=== PATIENT | male | born 1950 | race Caucasian/White ===

== ENCOUNTER 2016-03-04 15:38 | Outpatient (CLI) | payer MEDICARE | END 2016-03-04 15:39 | disposition home or self-care (01) | DX: I82.409 Acute embolism and thrombosis of unspecified deep veins of unspecified lower extremity (principal); Z79.01 Long term (current) use of anticoagulants ==

== ENCOUNTER 2016-09-24 13:47 | Outpatient (CLI) | payer MEDICARE | END 2016-09-24 13:48 | disposition home or self-care (01) | LOC: LAB 13:47 | PROVIDERS: ATTEND Emergency Medicine | DX: I82.409 Acute embolism and thrombosis of unspecified deep veins of unspecified lower extremity (principal) | CPT/HCPCS: 85610 ==

== ENCOUNTER 2016-09-25 13:43 | Outpatient (CLI) | payer MEDICARE ==
[2016-09-25 14:08] LABS: INR 1.2 (0.8-1.2); PT - PROTHROMBIN TIME 13.7 secs (9.9-12.6)
== END 2016-09-25 13:44 | disposition home or self-care (01) ==
LOC: LAB 13:43
PROVIDERS: ATTEND Physician Assistant
DX: Z86.718 Personal history of other venous thrombosis and embolism (principal)
CPT/HCPCS: 36415; 85610

== ENCOUNTER 2016-09-26 14:05 | Outpatient (CLI) | payer MEDICARE ==
[2016-09-26 14:43] LABS: BASOPHILS # (AUTO) 0.1 10^3/uL (0.0-0.1); BASOPHILS % (AUTO) 1.1 %; EOSINOPHILS # (AUTO) 0.1 10^3/uL (0.0-0.7); EOSINOPHILS % (AUTO) 2.6 %; HCT - HEMATOCRIT 33.6 % (42.0-52.0); HGB - HEMOGLOBIN 11.3 g/dL (14.0-18.0); LYMPHOCYTES # (AUTO) 1.2 10^3/uL (1.5-3.5); LYMPHOCYTES % (AUTO) 24.9 %; MEAN CORPUSCULAR HEMOGLOBIN 32.5 pg (27.0-31.0); MEAN CORPUSCULAR HGB CONC 33.7 g/dL (32.0-36.0); MEAN CORPUSCULAR VOLUME 96.6 fL (80.0-94.0); MEAN PLATELET VOLUME 8.8 fL (7.4-11.4); MONOCYTES # (AUTO) 0.6 10^3/uL (0.0-1.0); MONOCYTES % (AUTO) 13.1 %; NEUTROPHILS # (AUTO) 2.8 10^3/uL (1.5-6.6); NEUTROPHILS % (AUTO) 58.3 %; NUCLEATED RED BLOOD CELLS AUTO 0.1 /100WBC; RED BLOOD COUNT 3.47 10^6/uL (4.70-6.10); RED CELL DISTRIBUTION WIDTH 13.7 % (12.0-15.0); UNCORRECTED WHITE BLOOD COUNT 4.8 x10^3/uL; WHITE BLOOD COUNT 4.8 x10^3/uL (4.8-10.8)
[2016-09-26 14:50] LABS: INR 1.8 (0.8-1.2); PT - PROTHROMBIN TIME 19.8 secs (9.9-12.6)
== END 2016-09-26 14:06 | disposition home or self-care (01) ==
LOC: LAB 14:05
PROVIDERS: ATTEND Emergency Medicine
DX: I74.9 Embolism and thrombosis of unspecified artery (principal)
CPT/HCPCS: 36415; 82565; 85025; 85610

== ENCOUNTER 2016-09-27 14:02 | Outpatient (CLI) | payer MEDICARE | END 2016-09-27 14:03 | disposition home or self-care (01) | LOC: LAB 14:02 | PROVIDERS: ATTEND Emergency Medicine | DX: I82.409 Acute embolism and thrombosis of unspecified deep veins of unspecified lower extremity (principal) | CPT/HCPCS: 85610 ==

== ENCOUNTER 2016-09-28 14:58 | Outpatient (CLI) | payer MEDICARE | END 2016-09-28 14:59 | disposition home or self-care (01) | LOC: LAB 14:58 | PROVIDERS: ATTEND Emergency Medicine | DX: I82.409 Acute embolism and thrombosis of unspecified deep veins of unspecified lower extremity (principal) | CPT/HCPCS: 85610 ==

== ENCOUNTER 2016-09-30 13:44 | Outpatient (CLI) | payer MEDICARE | END 2016-09-30 13:45 | disposition home or self-care (01) | LOC: LAB 13:44 | PROVIDERS: ATTEND Emergency Medicine | DX: I82.409 Acute embolism and thrombosis of unspecified deep veins of unspecified lower extremity (principal) | CPT/HCPCS: 85610 ==

== ENCOUNTER 2016-10-18 13:24 | Outpatient (CLI) | payer MEDICARE | END 2016-10-18 13:25 | disposition home or self-care (01) | LOC: LAB 13:24 | PROVIDERS: ATTEND Emergency Medicine | DX: I82.409 Acute embolism and thrombosis of unspecified deep veins of unspecified lower extremity (principal) | CPT/HCPCS: 85610 ==

== ENCOUNTER 2016-11-01 14:45 | Outpatient (CLI) | payer MEDICARE | END 2016-11-01 14:46 | disposition home or self-care (01) | LOC: LAB 14:45 | PROVIDERS: ATTEND Emergency Medicine | DX: I82.409 Acute embolism and thrombosis of unspecified deep veins of unspecified lower extremity (principal) | CPT/HCPCS: 85610 ==

== ENCOUNTER 2016-11-11 08:00 | Outpatient (CLI) | payer MEDICARE ==
[2016-11-11 15:19] LABS: BILIRUBIN,URINE NEGATIVE (NEGATIVE); PH,URINE 6.5 PH (5.0-7.5); UA w/ MICROSCOPIC CHARGE YES
[2016-11-11 15:31] LABS: UR CULTURE IF IND INDICATED; WBC,URINE >25 /HPF (0-3)
== END 2016-11-11 08:01 | disposition home or self-care (01) ==
LOC: LAB.R 08:00
PROVIDERS: ATTEND Physician Assistant
DX: R82.90 Unspecified abnormal findings in urine (principal)
CPT/HCPCS: 81001; 81003; 87077; 87086

== ENCOUNTER 2016-11-21 14:57 | Outpatient (CLI) | payer MEDICARE | END 2016-11-21 14:58 | disposition home or self-care (01) | LOC: LAB 14:57 | PROVIDERS: ATTEND Emergency Medicine | DX: I82.409 Acute embolism and thrombosis of unspecified deep veins of unspecified lower extremity (principal) | CPT/HCPCS: 85610 ==

== ENCOUNTER 2016-11-24 14:58 | Outpatient (CLI) | payer MEDICARE | END 2016-11-24 14:59 | disposition home or self-care (01) | LOC: LAB 14:58 | PROVIDERS: ATTEND Emergency Medicine | DX: I82.409 Acute embolism and thrombosis of unspecified deep veins of unspecified lower extremity (principal) | CPT/HCPCS: 85610 ==

== ENCOUNTER 2016-11-25 12:04 | Outpatient (CLI) | payer MEDICARE | END 2016-11-25 12:05 | disposition home or self-care (01) | LOC: LAB 12:04 | PROVIDERS: ATTEND Emergency Medicine | DX: I82.409 Acute embolism and thrombosis of unspecified deep veins of unspecified lower extremity (principal) | CPT/HCPCS: 85610 ==

== ENCOUNTER 2016-11-28 13:30 | Outpatient (CLI) | payer MEDICARE ==
[2016-11-28 13:31] LABS: BASOPHILS % (AUTO) 0.8 %; EOSINOPHILS # (AUTO) 0.1 10^3/uL (0.0-0.7); EOSINOPHILS % (AUTO) 2.8 %; HCT - HEMATOCRIT 33.8 % (42.0-52.0); HGB - HEMOGLOBIN 11.3 g/dL (14.0-18.0); LYMPHOCYTES # (AUTO) 1.3 10^3/uL (1.5-3.5); MEAN CORPUSCULAR HEMOGLOBIN 32.1 pg (27.0-31.0); MEAN CORPUSCULAR HGB CONC 33.5 g/dL (32.0-36.0); MEAN CORPUSCULAR VOLUME 95.9 fL (80.0-94.0); MEAN PLATELET VOLUME 8.7 fL (7.4-11.4); MONOCYTES # (AUTO) 0.6 10^3/uL (0.0-1.0); MONOCYTES % (AUTO) 12.9 %; NEUTROPHILS # (AUTO) 2.6 10^3/uL (1.5-6.6); NEUTROPHILS % (AUTO) 56.5 %; RED BLOOD COUNT 3.53 10^6/uL (4.70-6.10); RED CELL DISTRIBUTION WIDTH 13.7 % (12.0-15.0); UNCORRECTED WHITE BLOOD COUNT 4.7 x10^3/uL; WHITE BLOOD COUNT 4.7 x10^3/uL (4.8-10.8)
[2016-11-28 13:36] LABS: INR 2.2 (0.8-1.2); PT - PROTHROMBIN TIME 24.7 secs (9.9-12.6)
== END 2016-11-28 13:31 | disposition home or self-care (01) ==
LOC: LAB 13:30
PROVIDERS: ATTEND Emergency Medicine
DX: I74.9 Embolism and thrombosis of unspecified artery (principal)
CPT/HCPCS: 36415; 82565; 85025; 85610

== ENCOUNTER 2016-12-05 13:10 | Outpatient (CLI) | payer MEDICARE ==
[2016-12-05 13:32] LABS: BASOPHILS % (AUTO) 1.1 %; EOSINOPHILS # (AUTO) 0.1 10^3/uL (0.0-0.7); EOSINOPHILS % (AUTO) 3.3 %; HCT - HEMATOCRIT 34.2 % (42.0-52.0); HGB - HEMOGLOBIN 11.3 g/dL (14.0-18.0); LYMPHOCYTES # (AUTO) 1.2 10^3/uL (1.5-3.5); LYMPHOCYTES % (AUTO) 27.8 %; MEAN CORPUSCULAR HEMOGLOBIN 31.5 pg (27.0-31.0); MEAN CORPUSCULAR VOLUME 95.3 fL (80.0-94.0); MEAN PLATELET VOLUME 8.4 fL (7.4-11.4); MONOCYTES # (AUTO) 0.6 10^3/uL (0.0-1.0); MONOCYTES % (AUTO) 14.1 %; NEUTROPHILS # (AUTO) 2.3 10^3/uL (1.5-6.6); NEUTROPHILS % (AUTO) 53.7 %; RED BLOOD COUNT 3.59 10^6/uL (4.70-6.10); RED CELL DISTRIBUTION WIDTH 13.4 % (12.0-15.0); UNCORRECTED WHITE BLOOD COUNT 4.2 x10^3/uL; WHITE BLOOD COUNT 4.2 x10^3/uL (4.8-10.8)
[2016-12-05 13:41] LABS: INR 1.8 (0.8-1.2); PT - PROTHROMBIN TIME 20.8 secs (9.9-12.6)
== END 2016-12-05 13:11 | disposition home or self-care (01) ==
LOC: LAB 13:10
PROVIDERS: ATTEND Emergency Medicine
DX: I82.409 Acute embolism and thrombosis of unspecified deep veins of unspecified lower extremity (principal); I74.9 Embolism and thrombosis of unspecified artery
CPT/HCPCS: 36415; 82565; 85025; 85610

== ENCOUNTER 2016-12-12 12:08 | Outpatient (CLI) | payer MEDICARE ==
[2016-12-12 12:26] LABS: BASOPHILS # (AUTO) 0.1 10^3/uL (0.0-0.1); BASOPHILS % (AUTO) 1.5 %; EOSINOPHILS # (AUTO) 0.1 10^3/uL (0.0-0.7); HCT - HEMATOCRIT 32.6 % (42.0-52.0); LYMPHOCYTES # (AUTO) 0.9 10^3/uL (1.5-3.5); LYMPHOCYTES % (AUTO) 24.1 %; MEAN CORPUSCULAR HEMOGLOBIN 31.7 pg (27.0-31.0); MEAN CORPUSCULAR HGB CONC 33.6 g/dL (32.0-36.0); MEAN CORPUSCULAR VOLUME 94.4 fL (80.0-94.0); MEAN PLATELET VOLUME 8.2 fL (7.4-11.4); MONOCYTES # (AUTO) 0.9 10^3/uL (0.0-1.0); NEUTROPHILS # (AUTO) 1.8 10^3/uL (1.5-6.6); NEUTROPHILS % (AUTO) 47.4 %; NUCLEATED RED BLOOD CELLS AUTO 0.1 /100WBC; RED BLOOD COUNT 3.46 10^6/uL (4.70-6.10); RED CELL DISTRIBUTION WIDTH 13.4 % (12.0-15.0); UNCORRECTED WHITE BLOOD COUNT 3.8 x10^3/uL; WHITE BLOOD COUNT 3.8 x10^3/uL (4.8-10.8)
[2016-12-12 12:31] LABS: INR 2.7 (0.8-1.2); PT - PROTHROMBIN TIME 30.6 secs (9.9-12.6)
[2016-12-12 12:35] LABS: CREATININE 1.1 mg/dL (0.6-1.2)
== END 2016-12-12 12:09 | disposition home or self-care (01) ==
LOC: LAB 12:08
PROVIDERS: ATTEND Emergency Medicine
DX: I82.409 Acute embolism and thrombosis of unspecified deep veins of unspecified lower extremity (principal); I74.9 Embolism and thrombosis of unspecified artery
CPT/HCPCS: 36415; 82565; 85025; 85610

== ENCOUNTER 2016-12-19 15:31 | Outpatient (CLI) | payer MEDICARE ==
[2016-12-19 15:58] LABS: BASOPHILS % (AUTO) 0.9 %; EOSINOPHILS # (AUTO) 0.1 10^3/uL (0.0-0.7); EOSINOPHILS % (AUTO) 3.1 %; HCT - HEMATOCRIT 29.8 % (42.0-52.0); LYMPHOCYTES # (AUTO) 1.4 10^3/uL (1.5-3.5); LYMPHOCYTES % (AUTO) 30.7 %; MEAN CORPUSCULAR HEMOGLOBIN 31.4 pg (27.0-31.0); MEAN CORPUSCULAR HGB CONC 33.5 g/dL (32.0-36.0); MEAN CORPUSCULAR VOLUME 93.7 fL (80.0-94.0); MEAN PLATELET VOLUME 8.6 fL (7.4-11.4); MONOCYTES # (AUTO) 0.6 10^3/uL (0.0-1.0); MONOCYTES % (AUTO) 12.1 %; NEUTROPHILS # (AUTO) 2.5 10^3/uL (1.5-6.6); NEUTROPHILS % (AUTO) 53.2 %; RED BLOOD COUNT 3.18 10^6/uL (4.70-6.10); RED CELL DISTRIBUTION WIDTH 13.3 % (12.0-15.0); UNCORRECTED WHITE BLOOD COUNT 4.7 x10^3/uL; WHITE BLOOD COUNT 4.7 x10^3/uL (4.8-10.8)
[2016-12-19 16:04] LABS: INR 2.6 (0.8-1.2); PT - PROTHROMBIN TIME 30.1 secs (9.9-12.6)
== END 2016-12-19 15:32 | disposition home or self-care (01) ==
LOC: LAB 15:31
PROVIDERS: ATTEND Emergency Medicine
DX: I82.409 Acute embolism and thrombosis of unspecified deep veins of unspecified lower extremity (principal); I74.9 Embolism and thrombosis of unspecified artery
CPT/HCPCS: 36415; 82565; 85025; 85610

== ENCOUNTER 2017-01-02 14:09 | Outpatient (CLI) | payer MEDICARE ==
[2017-01-02 14:29] LABS: BASOPHILS # (AUTO) 0.1 10^3/uL (0.0-0.1); BASOPHILS % (AUTO) 1.1 %; EOSINOPHILS # (AUTO) 0.2 10^3/uL (0.0-0.7); EOSINOPHILS % (AUTO) 3.4 %; HCT - HEMATOCRIT 27.6 % (42.0-52.0); HGB - HEMOGLOBIN 9.1 g/dL (14.0-18.0); LYMPHOCYTES # (AUTO) 1.1 10^3/uL (1.5-3.5); LYMPHOCYTES % (AUTO) 22.9 %; MEAN CORPUSCULAR HEMOGLOBIN 30.2 pg (27.0-31.0); MEAN CORPUSCULAR VOLUME 91.5 fL (80.0-94.0); MEAN PLATELET VOLUME 8.5 fL (7.4-11.4); MONOCYTES # (AUTO) 0.5 10^3/uL (0.0-1.0); MONOCYTES % (AUTO) 11.3 %; NEUTROPHILS % (AUTO) 61.3 %; RED BLOOD COUNT 3.02 10^6/uL (4.70-6.10); RED CELL DISTRIBUTION WIDTH 13.8 % (12.0-15.0); UNCORRECTED WHITE BLOOD COUNT 4.8 x10^3/uL; WHITE BLOOD COUNT 4.8 x10^3/uL (4.8-10.8)
[2017-01-02 14:36] LABS: CREATININE 1.1 mg/dL (0.6-1.2); INR 2.6 (0.8-1.2); PT - PROTHROMBIN TIME 28.4 secs (9.9-12.6)
== END 2017-01-02 14:10 | disposition home or self-care (01) ==
LOC: LAB 14:09
PROVIDERS: ATTEND Emergency Medicine
DX: I82.409 Acute embolism and thrombosis of unspecified deep veins of unspecified lower extremity (principal); I74.9 Embolism and thrombosis of unspecified artery
CPT/HCPCS: 36415; 82565; 85025; 85610

== ENCOUNTER 2017-01-16 15:27 | Outpatient (CLI) | payer MEDICARE ==
[2017-01-16 15:49] LABS: BASOPHILS % (AUTO) 0.8 %; EOSINOPHILS # (AUTO) 0.1 10^3/uL (0.0-0.7); EOSINOPHILS % (AUTO) 2.6 %; HCT - HEMATOCRIT 26.3 % (42.0-52.0); HGB - HEMOGLOBIN 8.7 g/dL (14.0-18.0); LYMPHOCYTES # (AUTO) 1.2 10^3/uL (1.5-3.5); MEAN CORPUSCULAR HEMOGLOBIN 29.5 pg (27.0-31.0); MEAN CORPUSCULAR HGB CONC 32.9 g/dL (32.0-36.0); MEAN CORPUSCULAR VOLUME 89.7 fL (80.0-94.0); MEAN PLATELET VOLUME 7.9 fL (7.4-11.4); MONOCYTES # (AUTO) 0.6 10^3/uL (0.0-1.0); MONOCYTES % (AUTO) 12.9 %; NEUTROPHILS # (AUTO) 2.9 10^3/uL (1.5-6.6); NEUTROPHILS % (AUTO) 58.7 %; RED BLOOD COUNT 2.94 10^6/uL (4.70-6.10); RED CELL DISTRIBUTION WIDTH 13.6 % (12.0-15.0); UNCORRECTED WHITE BLOOD COUNT 4.9 x10^3/uL; WHITE BLOOD COUNT 4.9 x10^3/uL (4.8-10.8)
[2017-01-16 16:01] LABS: INR 2.3 (0.8-1.2); PT - PROTHROMBIN TIME 24.8 secs (9.9-12.6)
== END 2017-01-16 15:28 | disposition home or self-care (01) ==
LOC: LAB 15:27
PROVIDERS: ATTEND Emergency Medicine
DX: I82.409 Acute embolism and thrombosis of unspecified deep veins of unspecified lower extremity (principal); I74.9 Embolism and thrombosis of unspecified artery
CPT/HCPCS: 36415; 82565; 85025; 85610

== ENCOUNTER 2017-02-17 14:32 | Outpatient (CLI) | payer MEDICARE ==
[2017-02-17 14:55] LABS: BASOPHILS # (AUTO) 0.1 10^3/uL (0.0-0.1); EOSINOPHILS # (AUTO) 0.2 10^3/uL (0.0-0.7); EOSINOPHILS % (AUTO) 3.3 %; HGB - HEMOGLOBIN 7.7 g/dL (14.0-18.0); LYMPHOCYTES # (AUTO) 1.2 10^3/uL (1.5-3.5); LYMPHOCYTES % (AUTO) 21.5 %; MEAN CORPUSCULAR HEMOGLOBIN 26.8 pg (27.0-31.0); MEAN CORPUSCULAR HGB CONC 31.8 g/dL (32.0-36.0); MEAN CORPUSCULAR VOLUME 84.2 fL (80.0-94.0); MONOCYTES # (AUTO) 0.7 10^3/uL (0.0-1.0); MONOCYTES % (AUTO) 12.1 %; NEUTROPHILS # (AUTO) 3.4 10^3/uL (1.5-6.6); NEUTROPHILS % (AUTO) 62.1 %; PLT - PLATELET COUNT 198 10^3/uL (130-450); RED BLOOD COUNT 2.86 10^6/uL (4.70-6.10); RED CELL DISTRIBUTION WIDTH 15.1 % (12.0-15.0); WHITE BLOOD COUNT 5.4 x10^3/uL (4.8-10.8)
[2017-02-17 15:02] LABS: INR 1.6 (0.8-1.2)
== END 2017-02-17 14:33 | disposition home or self-care (01) ==
LOC: LAB 14:32
PROVIDERS: ATTEND Emergency Medicine
DX: I82.409 Acute embolism and thrombosis of unspecified deep veins of unspecified lower extremity (principal); I74.9 Embolism and thrombosis of unspecified artery
CPT/HCPCS: 36415; 82565; 85025; 85610

== ENCOUNTER 2017-02-28 14:26 | Outpatient (CLI) | payer MEDICARE ==
[2017-02-28 15:12] LABS: CREATININE 1.1 mg/dL (0.6-1.2)
[2017-02-28 15:13] LABS: BASOPHILS % (AUTO) 0.8 %; EOSINOPHILS # (AUTO) 0.1 10^3/uL (0.0-0.7); EOSINOPHILS % (AUTO) 1.5 %; HGB - HEMOGLOBIN 7.8 g/dL (14.0-18.0); LYMPHOCYTES # (AUTO) 1.1 10^3/uL (1.5-3.5); LYMPHOCYTES % (AUTO) 20.4 %; MEAN CORPUSCULAR HEMOGLOBIN 26.1 pg (27.0-31.0); MEAN CORPUSCULAR HGB CONC 32.3 g/dL (32.0-36.0); MEAN CORPUSCULAR VOLUME 80.7 fL (80.0-94.0); MEAN PLATELET VOLUME 7.6 fL (7.4-11.4); MONOCYTES # (AUTO) 0.6 10^3/uL (0.0-1.0); MONOCYTES % (AUTO) 11.8 %; NEUTROPHILS # (AUTO) 3.4 10^3/uL (1.5-6.6); NEUTROPHILS % (AUTO) 65.5 %; PLT - PLATELET COUNT 242 10^3/uL (130-450); RED BLOOD COUNT 2.98 10^6/uL (4.70-6.10); RED CELL DISTRIBUTION WIDTH 15.4 % (12.0-15.0); WHITE BLOOD COUNT 5.2 x10^3/uL (4.8-10.8)
[2017-02-28 15:38] LABS: INR 1.8 (0.8-1.2); PT - PROTHROMBIN TIME 20.1 secs (9.9-12.6)
== END 2017-02-28 14:27 | disposition home or self-care (01) ==
LOC: LAB 14:26
PROVIDERS: ATTEND Emergency Medicine
DX: I82.409 Acute embolism and thrombosis of unspecified deep veins of unspecified lower extremity (principal); I74.9 Embolism and thrombosis of unspecified artery
CPT/HCPCS: 36415; 82565; 85025; 85610

== ENCOUNTER 2017-03-01 20:23 | Emergency (ER) | payer MEDICARE ==
[2017-03-01 20:57] LABS: BASOPHILS % (AUTO) 0.9 %; EOSINOPHILS # (AUTO) 0.1 10^3/uL (0.0-0.7); EOSINOPHILS % (AUTO) 1.8 %; HGB - HEMOGLOBIN 8.2 g/dL (14.0-18.0); LYMPHOCYTES # (AUTO) 1.3 10^3/uL (1.5-3.5); LYMPHOCYTES % (AUTO) 23.8 %; MEAN CORPUSCULAR HEMOGLOBIN 25.6 pg (27.0-31.0); MEAN CORPUSCULAR HGB CONC 31.3 g/dL (32.0-36.0); MEAN CORPUSCULAR VOLUME 81.7 fL (80.0-94.0); MEAN PLATELET VOLUME 7.8 fL (7.4-11.4); MONOCYTES # (AUTO) 0.8 10^3/uL (0.0-1.0); MONOCYTES % (AUTO) 14.6 %; NEUTROPHILS # (AUTO) 3.1 10^3/uL (1.5-6.6); NEUTROPHILS % (AUTO) 58.9 %; PLT - PLATELET COUNT 273 10^3/uL (130-450); RED CELL DISTRIBUTION WIDTH 15.4 % (12.0-15.0); WHITE BLOOD COUNT 5.3 x10^3/uL (4.8-10.8)
[2017-03-01 21:02] LABS: INR 1.8 (0.8-1.2); PT - PROTHROMBIN TIME 19.9 secs (9.9-12.6)
[2017-03-01 21:14] LABS: ALBUMIN 4.2 g/dL (3.2-5.5); ALBUMIN/GLOBULIN RATIO 1.3 (1.0-2.2); BILIRUBIN,TOTAL 0.4 mg/dL (0.2-1.0); CALCIUM 8.6 mg/dL (8.5-10.3); CREATININE 1.1 mg/dL (0.6-1.2); TOTAL PROTEIN 7.5 g/dL (6.7-8.2)
--- NOTE | 2017-03-01 21:19 | ED Physician Documentation ---
History of Present Illness - Stated complaint Stated Complaint: BLOOD CONCERNS - Chief complaint Chief Complaint: General - History obtained from History obtained from: Patient - History of Present Illness Timing: Today Pain level now: 0 - Additonal information Additional information: patient received a letter today (which he has in ED and I reviewed) from his PMD indicating low red blood cell levels on recent outpatient blood tests. The letter urges him to go to the ED, and patient complied. Patient says he is not aware of h/o anemia, denies ever needing transfusions, and feels well except mild dyspnea. He denies lightheadedness/dizziness, chest pain, weakness. He says the dyspnea is typical of his asthma exacerbations which are also typical for this time of year; he says the dyspnea improves with MDI use. Denies blood in stool or dark/tarry stool Review of Systems Constitutional: denies: Fatigue Cardiac: denies: Chest pain / pressure, Palpitations Respiratory: denies: Dyspnea, Cough GI: denies: Abdominal Pain, Nausea, Vomiting, Diarrhea, Hematemesis, Bloody / black stool Neurologic: denies: Generalized weakness, Focal weakness PD PAST MEDICAL HISTORY - Past Medical History Respiratory: Asthma Neuro: None - Past Surgical History Past Surgical History: No HEENT: Cataracts - Present Medications Home Medications: Ambulatory Orders Medication Instructions Recorded Confirmed Albuterol Sulfate [Proair Hfa] 1 puffs PO Q4H PRN 12/25/12 03/01/17 Atenolol 25 mg PO DAILY 06/06/15 03/01/17 Beclomethasone Dipropionate [Qvar] 1 puffs PO DAILY 06/06/15 03/01/17 Warfarin [Coumadin] 5 mg PO DAILY 03/01/17 03/01/17 - Allergies Allergies/Adverse Reactions: Allergies Allergy/AdvReac Type Severity Reaction Status Date / Time No Known Drug Allergies Allergy Verified 03/01/17 20:36 - Social History Does the pt smoke?: Yes Smoking Status: Current every day smoker Does the pt drink ETOH?: Yes Does the pt have substance abuse?: No - Immunizations Immunizations are current?: Yes - POLST Patient has POLST: No PD ED PE NORMAL - Vitals Vital signs reviewed: Yes - General General: Alert and oriented X 3, No acute distress, Well developed/nourished - HEENT HEENT: Moist mucous membranes - Cardiac Cardiac: RRR, No murmur - Respiratory Respiratory: No respiratory distress, Clear bilaterally - Abdomen Abdomen: Soft, Non tender, Non distended - Derm Derm: Normal color, Warm and dry - Extremities Extremities: No edema PD ED PE EXPANDED - Rectal Rectal: Heme Occult Neg - QC+ Results - Vitals Vitals: Vital Signs - 24 hr 03/01/17 03/01/17 03/01/17 20:29 21:19 21:53 Temperature 36.6 C Heart Rate 52 L 58 L Respiratory 18 18 Rate Blood Pressure 128/80 129/85 H O2 Saturation 98 100 03/01/17 22:22 Temperature Heart Rate 64 Respiratory 18 Rate Blood Pressure 117/72 O2 Saturation 99 Oxygen O2 Source Room air - Labs Labs: Laboratory Tests 03/01/17 03/01/17 03/01/17 20:47 20:47 20:47 WBC 5.3 RBC 3.20 L Hgb 8.2 L Hct 26.1 L MCV 81.7 MCH 25.6 L MCHC 31.3 L RDW 15.4 H Plt Count 273 MPV 7.8 Neut # 3.1 Lymph # 1.3 L [place] # 0.8 Eos # 0.1 Baso # 0.0 Absolute Nucleated RBC 0.00 Nucleated RBC % 0.0 PT 19.9 H INR 1.8 H Sodium 132 L Potassium 4.1 Chloride 99 L Carbon Dioxide 27 Anion Gap 6.0 BUN 25 H Creatinine 1.1 Estimated GFR (MDRD) 67 L Glucose 92 Calcium 8.6 Total Bilirubin 0.4 AST 30 ALT 21 Alkaline Phosphatase 54 Total Protein 7.5 Albumin 4.2 Globulin 3.3 Albumin/Globulin Ratio 1.3 Lipase 16 L PD MEDICAL DECISION MAKING - ED course Complexity details: reviewed old records, reviewed results, considered differential, d/w patient ED course: Patient's h/h have been slowly trending down since September and hemoglobin was in 7 range both yesterday and at the end of last month. Today, hemoglobin is 8.2 ( 0.5 higher than yesterday). He is relatively asymptomatic (the dyspnea is likely due to asthma, as it is relieved with MDI and associated with intermittent wheezing; he denies LANGE, fatigue). I discussed the case with Dr. Calvin (covering for FORTINO Hua, who wrote the letter mentioned in HPI), and he agrees patient is appropriate for d/c home, f/u with PMD by calling office in the AM for immediate follow-up. I discussed this with patient and he expresses understanding of, and agreement with, this plan Departure - Departure Disposition: 01 Home, Self Care Clinical Impression: Anemia Condition: Good Instructions: ED Anemia Type Not Specified Comments: Contact your primary care provider in the morning to arrange for next available appointment. Discharge Date/Time: 03/01/17 22:39
[2017-03-01 22:22] VITALS: BP 117/72
== END 2017-03-01 22:39 | disposition home or self-care (01) ==
LOC: ED 20:23
DX: D64.9 Anemia, unspecified (principal); J45.909 Unspecified asthma, uncomplicated; F17.200 Nicotine dependence, unspecified, uncomplicated
CPT/HCPCS: 36415; 80053; 83690; 85025; 85610; 93005; 99283

== ENCOUNTER 2017-03-08 14:52 | Outpatient (CLI) | payer MEDICARE ==
[2017-03-08 15:45] LABS: BASOPHILS # (AUTO) 0.1 10^3/uL (0.0-0.1); BASOPHILS % (AUTO) 1.3 %; EOSINOPHILS # (AUTO) 0.1 10^3/uL (0.0-0.7); HGB - HEMOGLOBIN 7.6 g/dL (14.0-18.0); LYMPHOCYTES # (AUTO) 1.1 10^3/uL (1.5-3.5); LYMPHOCYTES % (AUTO) 25.1 %; MEAN CORPUSCULAR HEMOGLOBIN 24.9 pg (27.0-31.0); MEAN CORPUSCULAR HGB CONC 30.8 g/dL (32.0-36.0); MEAN CORPUSCULAR VOLUME 80.9 fL (80.0-94.0); MEAN PLATELET VOLUME 7.8 fL (7.4-11.4); MONOCYTES # (AUTO) 0.6 10^3/uL (0.0-1.0); MONOCYTES % (AUTO) 14.2 %; NEUTROPHILS # (AUTO) 2.4 10^3/uL (1.5-6.6); NEUTROPHILS % (AUTO) 57.4 %; PLT - PLATELET COUNT 237 10^3/uL (130-450); RED BLOOD COUNT 3.05 10^6/uL (4.70-6.10); WHITE BLOOD COUNT 4.2 x10^3/uL (4.8-10.8)
[2017-03-08 15:54] LABS: CREATININE 1.1 mg/dL (0.6-1.2)
[2017-03-08 15:58] LABS: INR 2.1 (0.8-1.2); PT - PROTHROMBIN TIME 22.8 secs (9.9-12.6)
== END 2017-03-08 14:53 | disposition home or self-care (01) ==
LOC: LAB 14:52
PROVIDERS: ATTEND Emergency Medicine
DX: I82.409 Acute embolism and thrombosis of unspecified deep veins of unspecified lower extremity (principal); I74.9 Embolism and thrombosis of unspecified artery
CPT/HCPCS: 36415; 82565; 85025; 85610

== ENCOUNTER 2017-03-22 14:00 | Outpatient (CLI) | payer MEDICARE ==
[2017-03-22 14:21] LABS: BASOPHILS # (AUTO) 0.1 10^3/uL (0.0-0.1); BASOPHILS % (AUTO) 1.3 %; EOSINOPHILS # (AUTO) 0.2 10^3/uL (0.0-0.7); EOSINOPHILS % (AUTO) 5.1 %; HGB - HEMOGLOBIN 8.3 g/dL (14.0-18.0); LYMPHOCYTES # (AUTO) 1.3 10^3/uL (1.5-3.5); LYMPHOCYTES % (AUTO) 27.6 %; MEAN CORPUSCULAR HEMOGLOBIN 24.6 pg (27.0-31.0); MEAN CORPUSCULAR VOLUME 76.9 fL (80.0-94.0); MEAN PLATELET VOLUME 7.5 fL (7.4-11.4); MONOCYTES # (AUTO) 0.8 10^3/uL (0.0-1.0); MONOCYTES % (AUTO) 16.5 %; NEUTROPHILS # (AUTO) 2.3 10^3/uL (1.5-6.6); NEUTROPHILS % (AUTO) 49.5 %; PLT - PLATELET COUNT 199 10^3/uL (130-450); RED BLOOD COUNT 3.38 10^6/uL (4.70-6.10); RED CELL DISTRIBUTION WIDTH 16.3 % (12.0-15.0); WHITE BLOOD COUNT 4.6 x10^3/uL (4.8-10.8)
[2017-03-22 14:25] LABS: CREATININE 1.1 mg/dL (0.6-1.2)
[2017-03-22 14:28] LABS: INR 1.8 (0.8-1.2); PT - PROTHROMBIN TIME 19.5 secs (9.9-12.6)
== END 2017-03-22 14:01 | disposition home or self-care (01) ==
LOC: LAB 14:00
PROVIDERS: ATTEND Emergency Medicine
DX: I82.409 Acute embolism and thrombosis of unspecified deep veins of unspecified lower extremity (principal); I74.9 Embolism and thrombosis of unspecified artery
CPT/HCPCS: 36415; 82565; 85025; 85610

== ENCOUNTER 2017-04-03 13:43 | Outpatient (CLI) | payer MEDICARE | END 2017-04-03 13:44 | disposition home or self-care (01) | LOC: LAB 13:43 | PROVIDERS: ATTEND Emergency Medicine | DX: I74.9 Embolism and thrombosis of unspecified artery (principal) | CPT/HCPCS: 85610 ==

== ENCOUNTER 2017-04-20 13:50 | Outpatient (CLI) | payer MEDICARE | END 2017-04-20 13:51 | disposition home or self-care (01) | LOC: LAB 13:50 | PROVIDERS: ATTEND Emergency Medicine | DX: I82.409 Acute embolism and thrombosis of unspecified deep veins of unspecified lower extremity (principal); I74.9 Embolism and thrombosis of unspecified artery | CPT/HCPCS: 85610 ==

== ENCOUNTER 2017-04-28 14:45 | Outpatient (CLI) | payer MEDICARE ==
[2017-04-28 15:06] LABS: CREATININE 1.2 mg/dL (0.6-1.2)
[2017-04-28 15:16] LABS: BASOPHILS % (AUTO) 0.8 %; EOSINOPHILS # (AUTO) 0.2 10^3/uL (0.0-0.7); EOSINOPHILS % (AUTO) 4.5 %; HGB - HEMOGLOBIN 9.3 g/dL (14.0-18.0); LYMPHOCYTES # (AUTO) 1.3 10^3/uL (1.5-3.5); LYMPHOCYTES % (AUTO) 27.5 %; MEAN CORPUSCULAR HEMOGLOBIN 23.8 pg (27.0-31.0); MEAN CORPUSCULAR HGB CONC 30.6 g/dL (32.0-36.0); MEAN CORPUSCULAR VOLUME 77.8 fL (80.0-94.0); MEAN PLATELET VOLUME 8.8 fL (7.4-11.4); MONOCYTES # (AUTO) 0.7 10^3/uL (0.0-1.0); MONOCYTES % (AUTO) 14.4 %; NEUTROPHILS # (AUTO) 2.6 10^3/uL (1.5-6.6); NEUTROPHILS % (AUTO) 52.8 %; PLT - PLATELET COUNT 184 10^3/uL (130-450); RED BLOOD COUNT 3.92 10^6/uL (4.70-6.10); WHITE BLOOD COUNT 4.9 x10^3/uL (4.8-10.8)
== END 2017-04-28 14:46 | disposition home or self-care (01) ==
LOC: LAB 14:45
PROVIDERS: ATTEND Emergency Medicine
DX: I82.409 Acute embolism and thrombosis of unspecified deep veins of unspecified lower extremity (principal); I74.9 Embolism and thrombosis of unspecified artery
CPT/HCPCS: 36415; 82565; 85025; 85610

== ENCOUNTER 2017-05-11 16:16 | Outpatient (CLI) | payer MEDICARE ==
[2017-05-11 17:33] LABS: BASOPHILS % (AUTO) 0.7 %; EOSINOPHILS # (AUTO) 0.1 10^3/uL (0.0-0.7); EOSINOPHILS % (AUTO) 3.3 %; HGB - HEMOGLOBIN 9.6 g/dL (14.0-18.0); LYMPHOCYTES # (AUTO) 1.2 10^3/uL (1.5-3.5); LYMPHOCYTES % (AUTO) 29.6 %; MEAN CORPUSCULAR HEMOGLOBIN 24.4 pg (27.0-31.0); MEAN CORPUSCULAR HGB CONC 30.9 g/dL (32.0-36.0); MEAN CORPUSCULAR VOLUME 79.1 fL (80.0-94.0); MONOCYTES # (AUTO) 0.6 10^3/uL (0.0-1.0); MONOCYTES % (AUTO) 15.3 %; NEUTROPHILS # (AUTO) 2.1 10^3/uL (1.5-6.6); NEUTROPHILS % (AUTO) 51.1 %; PLT - PLATELET COUNT 170 10^3/uL (130-450); RED BLOOD COUNT 3.92 10^6/uL (4.70-6.10); RED CELL DISTRIBUTION WIDTH 21.1 % (12.0-15.0); WHITE BLOOD COUNT 4.1 x10^3/uL (4.8-10.8)
[2017-05-11 17:39] LABS: INR 2.3 (0.8-1.2); PT - PROTHROMBIN TIME 25.5 secs (9.9-12.6)
[2017-05-11 17:46] LABS: PLATELET ESTIMATE, MANUAL NORMAL (130-450,000) (NORMAL); PLATELET MORPHOLOGY NORMAL APPEARANCE (NORMAL)
== END 2017-05-11 16:17 | disposition home or self-care (01) ==
LOC: LAB.F 16:16
PROVIDERS: ATTEND Emergency Medicine
DX: I82.409 Acute embolism and thrombosis of unspecified deep veins of unspecified lower extremity (principal); I74.9 Embolism and thrombosis of unspecified artery
CPT/HCPCS: 36415; 82565; 85025; 85610

== ENCOUNTER 2017-05-26 14:52 | Outpatient (CLI) | payer MEDICARE | END 2017-05-26 14:53 | disposition home or self-care (01) | LOC: LAB 14:52 | PROVIDERS: ATTEND Emergency Medicine | DX: I82.409 Acute embolism and thrombosis of unspecified deep veins of unspecified lower extremity (principal); I74.9 Embolism and thrombosis of unspecified artery | CPT/HCPCS: 85610 ==

== ENCOUNTER 2017-06-20 13:46 | Outpatient (CLI) | payer MEDICARE ==
[2017-06-20 18:04] LABS: BASOPHILS % (AUTO) 0.7 %; EOSINOPHILS # (AUTO) 0.2 10^3/uL (0.0-0.7); EOSINOPHILS % (AUTO) 2.8 %; HGB - HEMOGLOBIN 10.4 g/dL (14.0-18.0); LYMPHOCYTES # (AUTO) 1.4 10^3/uL (1.5-3.5); LYMPHOCYTES % (AUTO) 25.3 %; MEAN CORPUSCULAR HEMOGLOBIN 26.4 pg (27.0-31.0); MEAN CORPUSCULAR HGB CONC 31.6 g/dL (32.0-36.0); MEAN CORPUSCULAR VOLUME 83.5 fL (80.0-94.0); MEAN PLATELET VOLUME 8.9 fL (7.4-11.4); MONOCYTES # (AUTO) 0.6 10^3/uL (0.0-1.0); MONOCYTES % (AUTO) 11.5 %; NEUTROPHILS # (AUTO) 3.2 10^3/uL (1.5-6.6); NEUTROPHILS % (AUTO) 59.7 %; PLT - PLATELET COUNT 194 10^3/uL (130-450); RED BLOOD COUNT 3.94 10^6/uL (4.70-6.10); RED CELL DISTRIBUTION WIDTH 21.4 % (12.0-15.0); WHITE BLOOD COUNT 5.4 x10^3/uL (4.8-10.8)
[2017-06-20 18:22] LABS: CREATININE 1.1 mg/dL (0.6-1.2)
[2017-06-20 19:03] LABS: INR 4.1 (0.8-1.2); PT - PROTHROMBIN TIME 43.8 secs (9.9-12.6)
== END 2017-06-20 13:47 | disposition home or self-care (01) ==
LOC: LAB.F 13:46
PROVIDERS: ATTEND Emergency Medicine
DX: I82.409 Acute embolism and thrombosis of unspecified deep veins of unspecified lower extremity (principal); I74.9 Embolism and thrombosis of unspecified artery
CPT/HCPCS: 36415; 82565; 85025; 85610

== ENCOUNTER 2017-06-28 12:09 | Outpatient (CLI) | payer MEDICARE | END 2017-06-28 12:10 | disposition home or self-care (01) | LOC: LAB.F 12:09 | PROVIDERS: ATTEND Emergency Medicine | DX: I82.409 Acute embolism and thrombosis of unspecified deep veins of unspecified lower extremity (principal); I74.9 Embolism and thrombosis of unspecified artery | CPT/HCPCS: 85610 ==

== ENCOUNTER 2017-07-13 13:44 | Outpatient (CLI) | payer MEDICARE | END 2017-07-13 13:45 | disposition home or self-care (01) | LOC: LAB.F 13:44 | PROVIDERS: ATTEND Emergency Medicine | DX: I82.409 Acute embolism and thrombosis of unspecified deep veins of unspecified lower extremity (principal); I74.9 Embolism and thrombosis of unspecified artery | CPT/HCPCS: 85610 ==

== ENCOUNTER 2017-08-03 15:18 | Outpatient (CLI) | payer MEDICARE | END 2017-08-03 15:19 | disposition home or self-care (01) | LOC: LAB.F 15:18 | PROVIDERS: ATTEND Emergency Medicine | DX: I82.409 Acute embolism and thrombosis of unspecified deep veins of unspecified lower extremity (principal); I74.9 Embolism and thrombosis of unspecified artery | CPT/HCPCS: 85610 ==

== ENCOUNTER 2017-08-31 15:13 | Outpatient (CLI) | payer MEDICARE | END 2017-08-31 15:14 | disposition home or self-care (01) | LOC: LAB.F 15:13 | PROVIDERS: ATTEND Emergency Medicine | DX: I82.409 Acute embolism and thrombosis of unspecified deep veins of unspecified lower extremity (principal); I74.9 Embolism and thrombosis of unspecified artery | CPT/HCPCS: 85610 ==

== ENCOUNTER 2017-10-02 10:50 | Emergency (ER) | payer MEDICARE ==
[2017-10-02 11:35] LABS: BILIRUBIN,URINE NEGATIVE (NEGATIVE); GLUCOSE, URINE (UA) NEGATIVE (NEGATIVE); KETONES,URINE (UA) NEGATIVE (NEGATIVE); LEUKOCYTE ESTERASE, URINE NEGATIVE (NEGATIVE); NITRITE,URINE NEGATIVE (NEGATIVE); OCCULT BLOOD,URINE LARGE (NEGATIVE); PROTEIN,URINE NEGATIVE (NEGATIVE); UROBILINOGEN,URINE 0.2 (NORMAL) E.U./dL (NORMAL)
[2017-10-02 11:37] LABS: CLARITY,URINE CLOUDY (CLEAR)
[2017-10-02 11:44] LABS: BACTERIA,URINE None Seen /HPF (None Seen); RBC,URINE TNTC /HPF (0-5); SQUAMOUS EPITHELIAL CELL,UR NONE SEEN (<= Few)
--- NOTE | 2017-10-02 12:25 | ED Physician Documentation ---
PD HPI MALE - Stated complaint Stated Complaint: BLOOD IN URINE - Chief complaint Chief Complaint: UTI - History obtained from History obtained from: Patient - History of Present Illness Timing - onset: Today Timing - duration: Days (1) Timing - details: Abrupt onset Pain level max: 0 Pain level now: 0 Similar symptoms before: Diagnosis (UTI) - Additional information Additional information: patient states self catheterizes at home and noted blood in the urine today. States has happened with UTI's in the past. No fevers. no chills. no vomiting. Review of Systems Constitutional: denies: Fever, Chills GI: denies: Abdominal Pain, Vomiting Musculoskeletal: denies: Back pain PD PAST MEDICAL HISTORY - Past Medical History Past Medical History: Yes Respiratory: Asthma - Past Surgical History Past Surgical History: Yes HEENT: Cataracts - Present Medications Home Medications: Ambulatory Orders Medication Instructions Recorded Confirmed Albuterol Sulfate [Proair Hfa] 1 puffs PO Q4H PRN 12/25/12 03/01/17 Atenolol 25 mg PO DAILY 06/06/15 03/01/17 Beclomethasone Dipropionate [Qvar] 1 puffs PO DAILY 06/06/15 03/01/17 Warfarin [Coumadin] 5 mg PO DAILY 03/01/17 03/01/17 Cephalexin [Keflex] 500 mg PO Q6H #20 capsule 10/02/17 - Allergies Allergies/Adverse Reactions: Allergies Allergy/AdvReac Type Severity Reaction Status Date / Time No Known Drug Allergies Allergy Verified 10/02/17 11:02 - Social History Does the pt smoke?: Yes Smoking Status: Current every day smoker Does the pt drink ETOH?: Yes Does the pt have substance abuse?: No - Immunizations Immunizations are current?: Yes - POLST Patient has POLST: No PD ED PE NORMAL - Vitals Vital signs reviewed: Yes - General General: Alert and oriented X 3, No acute distress - HEENT HEENT: Moist mucous membranes - Neck Neck: Supple, no meningeal sign - Cardiac Cardiac: RRR - Respiratory Respiratory: No respiratory distress, Clear bilaterally - Abdomen Abdomen: Soft, Non tender - Back Back: No CVA TTP, No spinal TTP - Derm Derm: Warm and dry - Neuro Neuro: Alert and oriented X 3 Results - Vitals Vitals: Vital Signs - 24 hr 10/02/17 10/02/17 10:58 13:17 Temperature 36.6 C 36.7 C Heart Rate 74 50 L Respiratory 20 18 Rate Blood Pressure 142/91 H 131/83 H O2 Saturation 100 99 Oxygen O2 Source Room air - Labs Labs: Laboratory Tests 10/02/17 10/02/17 11:16 13:08 Whole Blood INR 4.0 H Urine Color BROWN Urine Clarity CLOUDY Urine pH 7.0 Ur Specific [place] 1.010 Urine Protein NEGATIVE Urine Glucose (UA) NEGATIVE Urine Ketones NEGATIVE Urine Occult Blood LARGE H Urine Nitrite NEGATIVE Urine Bilirubin NEGATIVE Urine Urobilinogen 0.2 (NORMAL) Ur Leukocyte Esterase NEGATIVE Urine RBC TNTC H Urine WBC 0-3 Ur Squamous Epith Cells NONE SEEN Urine Bacteria None Seen Ur Microscopic Review INDICATED Urine Culture Comments NOT INDICATED PD MEDICAL DECISION MAKING - ED course Complexity details: reviewed results, re-evaluated patient, considered differential, d/w patient ED course: Patient is a 67-year-old male who presents to the emergency department with gross hematuria. Likely secondary to trauma from self-catheterization given his elevated INR. We will have him hold his warfarin and see if this resolves. If he continues to have symptoms, will start the antibiotics. Has had multiple UTIs in the past. Patient is well-appearing, nontoxic. Afebrile. No CVA tenderness. Patient counseled regarding signs and symptoms for which I believe and urgent re-evaluation would be necessary. Patient with good understanding of and agreement to plan and is comfortable going home at this time This document was made in part using voice recognition software. While efforts are made to proofread this document, sound alike and grammatical errors may occur. - Sepsis Event Vital Signs: Vital Signs - 24 hr 10/02/17 10/02/17 10:58 13:17 Temperature 36.6 C 36.7 C Heart Rate 74 50 L Respiratory 20 18 Rate Blood Pressure 142/91 H 131/83 H O2 Saturation 100 99 Oxygen O2 Source Room air Departure - Departure Disposition: 01 Home, Self Care Clinical Impression: Supratherapeutic INR UTI (urinary tract infection) Qualifiers: Urinary tract infection type: acute cystitis Hematuria presence: with hematuria Qualified Code(s): N30.01 - Acute cystitis with hematuria Condition: Good Instructions: ED UTI Cystitis Male Follow-Up: Preston Hua PA [Primary Care Provider] - Prescriptions: Cephalexin [Keflex] 500 mg PO Q6H #20 capsule Comments: Your warfarin level is too high today. You need to skip your next dose. This should help your bleeding. You can also start the antibiotics to see if this clears your symptoms. Return if you worsen. You should have your INR rechecked with your doctor later in the week. Discharge Date/Time: 10/02/17 13:17
[2017-10-02 13:18] VITALS: BP 131/83
== END 2017-10-02 13:17 | disposition home or self-care (01) ==
LOC: ED 10:50
DX: N30.01 Acute cystitis with hematuria (principal); R79.1 Abnormal coagulation profile; F17.200 Nicotine dependence, unspecified, uncomplicated; Z79.01 Long term (current) use of anticoagulants
CPT/HCPCS: 81001; 81003; 85610; 87086; 99283

== ENCOUNTER 2017-10-05 12:53 | Outpatient (CLI) | payer MEDICARE | END 2017-10-05 12:54 | disposition home or self-care (01) | LOC: LAB.F 12:53 | PROVIDERS: ATTEND Emergency Medicine | DX: I82.409 Acute embolism and thrombosis of unspecified deep veins of unspecified lower extremity (principal); I74.9 Embolism and thrombosis of unspecified artery | CPT/HCPCS: 85610 ==

== ENCOUNTER 2017-10-12 12:36 | Outpatient (CLI) | payer MEDICARE | END 2017-10-12 12:37 | disposition home or self-care (01) | LOC: LAB.F 12:36 | PROVIDERS: ATTEND Emergency Medicine | DX: I82.409 Acute embolism and thrombosis of unspecified deep veins of unspecified lower extremity (principal); I74.9 Embolism and thrombosis of unspecified artery | CPT/HCPCS: 85610 ==

== ENCOUNTER 2017-10-27 13:33 | Outpatient (CLI) | payer MEDICARE | END 2017-10-27 13:34 | disposition home or self-care (01) | LOC: LAB.F 13:33 | PROVIDERS: ATTEND Emergency Medicine | DX: I82.409 Acute embolism and thrombosis of unspecified deep veins of unspecified lower extremity (principal); I74.9 Embolism and thrombosis of unspecified artery | CPT/HCPCS: 85610 ==

== ENCOUNTER 2017-11-17 13:12 | Outpatient (CLI) | payer MEDICARE ==
[2017-11-17 18:18] LABS: BASOPHILS % (AUTO) 0.7 %; EOSINOPHILS # (AUTO) 0.3 10^3/uL (0.0-0.7); EOSINOPHILS % (AUTO) 5.5 %; HGB - HEMOGLOBIN 11.2 g/dL (14.0-18.0); LYMPHOCYTES # (AUTO) 1.3 10^3/uL (1.5-3.5); LYMPHOCYTES % (AUTO) 24.9 %; MEAN CORPUSCULAR HEMOGLOBIN 32.4 pg (27.0-31.0); MEAN CORPUSCULAR HGB CONC 33.7 g/dL (32.0-36.0); MEAN PLATELET VOLUME 10.2 fL (7.4-11.4); MONOCYTES # (AUTO) 0.7 10^3/uL (0.0-1.0); MONOCYTES % (AUTO) 13.9 %; NEUTROPHILS # (AUTO) 2.9 10^3/uL (1.5-6.6); PLT - PLATELET COUNT 150 10^3/uL (130-450); RED BLOOD COUNT 3.46 10^6/uL (4.70-6.10); RED CELL DISTRIBUTION WIDTH 14.3 % (12.0-15.0); WHITE BLOOD COUNT 5.2 x10^3/uL (4.8-10.8)
[2017-11-17 19:56] LABS: ALBUMIN 3.9 g/dL (3.2-5.5); ALBUMIN/GLOBULIN RATIO 1.5 (1.0-2.2); BILIRUBIN,TOTAL 0.6 mg/dL (0.2-1.0); CALCIUM 8.6 mg/dL (8.5-10.3); CREATININE 0.9 mg/dL (0.6-1.2); TOTAL PROTEIN 6.5 g/dL (6.7-8.2)
== END 2017-11-17 13:13 | disposition home or self-care (01) ==
LOC: LAB.F 13:12
PROVIDERS: ATTEND Physician Assistant
DX: D64.9 Anemia, unspecified (principal); I82.409 Acute embolism and thrombosis of unspecified deep veins of unspecified lower extremity; I74.9 Embolism and thrombosis of unspecified artery
CPT/HCPCS: 36415; 80053; 82728; 83540; 84466; 85025; 85610

== ENCOUNTER 2017-12-07 13:23 | Outpatient (CLI) | payer MEDICARE | END 2017-12-07 13:24 | disposition home or self-care (01) | LOC: LAB.F 13:23 | PROVIDERS: ATTEND Emergency Medicine | DX: I82.409 Acute embolism and thrombosis of unspecified deep veins of unspecified lower extremity (principal); I74.9 Embolism and thrombosis of unspecified artery | CPT/HCPCS: 85610 ==

== ENCOUNTER 2017-12-29 14:53 | Outpatient (CLI) | payer MEDICARE ==
[2017-12-29 18:00] LABS: INR 3.1 (0.8-1.2); PT - PROTHROMBIN TIME 34.4 secs (9.9-12.6)
== END 2017-12-29 14:54 | disposition home or self-care (01) ==
LOC: LAB.F 14:53
PROVIDERS: ATTEND Emergency Medicine
DX: I82.412 Acute embolism and thrombosis of left femoral vein (principal)
CPT/HCPCS: 36415; 85610

== ENCOUNTER 2018-01-09 13:57 | Outpatient (CLI) | payer MEDICARE | END 2018-01-09 13:58 | disposition home or self-care (01) | LOC: LAB.F 13:57 | PROVIDERS: ATTEND Emergency Medicine | DX: I82.409 Acute embolism and thrombosis of unspecified deep veins of unspecified lower extremity (principal); I74.9 Embolism and thrombosis of unspecified artery | CPT/HCPCS: 85610 ==

== ENCOUNTER 2018-01-23 10:33 | Outpatient (CLI) | payer MEDICARE | END 2018-01-23 10:34 | disposition home or self-care (01) | LOC: LAB.F 10:33 | PROVIDERS: ATTEND Emergency Medicine | DX: I82.409 Acute embolism and thrombosis of unspecified deep veins of unspecified lower extremity (principal); I74.9 Embolism and thrombosis of unspecified artery | CPT/HCPCS: 85610 ==

== ENCOUNTER 2018-02-07 13:14 | Outpatient (CLI) | payer MEDICARE | END 2018-02-07 13:15 | disposition home or self-care (01) | LOC: LAB.F 13:14 | PROVIDERS: ATTEND Emergency Medicine | DX: I82.409 Acute embolism and thrombosis of unspecified deep veins of unspecified lower extremity (principal); I74.9 Embolism and thrombosis of unspecified artery | CPT/HCPCS: 85610 ==

== ENCOUNTER 2018-03-06 11:13 | Outpatient (CLI) | payer MEDICARE | END 2018-03-06 11:14 | disposition home or self-care (01) | LOC: LAB.F 11:13 | PROVIDERS: ATTEND Emergency Medicine | DX: I82.409 Acute embolism and thrombosis of unspecified deep veins of unspecified lower extremity (principal); I74.9 Embolism and thrombosis of unspecified artery | CPT/HCPCS: 85610 ==

== ENCOUNTER 2018-04-10 14:52 | Outpatient (CLI) | payer MEDICARE | END 2018-04-10 14:53 | disposition home or self-care (01) | LOC: LAB.F 14:52 | PROVIDERS: ATTEND Emergency Medicine | DX: I82.409 Acute embolism and thrombosis of unspecified deep veins of unspecified lower extremity (principal); I74.9 Embolism and thrombosis of unspecified artery | CPT/HCPCS: 85610 ==

== ENCOUNTER 2018-05-04 15:13 | Outpatient (CLI) | payer MEDICARE | END 2018-05-04 15:14 | disposition home or self-care (01) | LOC: LAB.F 15:13 | PROVIDERS: ATTEND Emergency Medicine | DX: I82.409 Acute embolism and thrombosis of unspecified deep veins of unspecified lower extremity (principal); I74.9 Embolism and thrombosis of unspecified artery | CPT/HCPCS: 85610 ==

== ENCOUNTER 2018-05-10 12:45 | Outpatient (CLI) | payer MEDICARE | END 2018-05-10 12:46 | disposition home or self-care (01) | LOC: LAB.F 12:45 | PROVIDERS: ATTEND Emergency Medicine | DX: I82.409 Acute embolism and thrombosis of unspecified deep veins of unspecified lower extremity (principal) | CPT/HCPCS: 85610 ==

== ENCOUNTER 2018-05-21 13:53 | Outpatient (CLI) | payer MEDICARE | END 2018-05-21 13:54 | disposition home or self-care (01) | LOC: LAB.F 13:53 | PROVIDERS: ATTEND Emergency Medicine | DX: I74.9 Embolism and thrombosis of unspecified artery (principal); I82.409 Acute embolism and thrombosis of unspecified deep veins of unspecified lower extremity | CPT/HCPCS: 85610 ==

== ENCOUNTER 2018-06-04 14:02 | Outpatient (CLI) | payer MEDICARE | END 2018-06-04 14:03 | disposition home or self-care (01) | LOC: LAB.F 14:02 | PROVIDERS: ATTEND Emergency Medicine | DX: I82.409 Acute embolism and thrombosis of unspecified deep veins of unspecified lower extremity (principal); I74.9 Embolism and thrombosis of unspecified artery | CPT/HCPCS: 85610 ==

== ENCOUNTER 2018-06-13 14:03 | Outpatient (CLI) | payer MEDICARE | END 2018-06-13 14:04 | disposition home or self-care (01) | LOC: LAB.F 14:03 | PROVIDERS: ATTEND Emergency Medicine | DX: I82.409 Acute embolism and thrombosis of unspecified deep veins of unspecified lower extremity (principal); I74.9 Embolism and thrombosis of unspecified artery | CPT/HCPCS: 85610 ==

== ENCOUNTER 2018-07-04 14:57 | Outpatient (CLI) | payer MEDICARE | END 2018-07-04 14:58 | disposition home or self-care (01) | LOC: LAB.F 14:57 | PROVIDERS: ATTEND Emergency Medicine | DX: I82.409 Acute embolism and thrombosis of unspecified deep veins of unspecified lower extremity (principal); I74.9 Embolism and thrombosis of unspecified artery | CPT/HCPCS: 85610 ==

== ENCOUNTER 2018-07-30 13:47 | Outpatient (CLI) | payer MEDICARE | END 2018-07-30 13:48 | disposition home or self-care (01) | LOC: LAB.F 13:47 | PROVIDERS: ATTEND Emergency Medicine | DX: I82.409 Acute embolism and thrombosis of unspecified deep veins of unspecified lower extremity (principal); I74.9 Embolism and thrombosis of unspecified artery | CPT/HCPCS: 85610 ==

== ENCOUNTER 2018-08-14 12:54 | Outpatient (CLI) | payer MEDICARE | END 2018-08-14 12:55 | disposition home or self-care (01) | LOC: LAB.F 12:54 | PROVIDERS: ATTEND Emergency Medicine | DX: I82.409 Acute embolism and thrombosis of unspecified deep veins of unspecified lower extremity (principal); I74.9 Embolism and thrombosis of unspecified artery | CPT/HCPCS: 85610 ==

== ENCOUNTER 2018-09-05 14:18 | Outpatient (CLI) | payer MEDICARE | END 2018-09-05 14:19 | disposition home or self-care (01) | LOC: LAB.S 14:18 | PROVIDERS: ATTEND Emergency Medicine | DX: I82.409 Acute embolism and thrombosis of unspecified deep veins of unspecified lower extremity (principal); I74.9 Embolism and thrombosis of unspecified artery | CPT/HCPCS: 85610 ==

== ENCOUNTER 2018-10-04 15:07 | Outpatient (CLI) | payer MEDICARE | END 2018-10-04 15:08 | disposition home or self-care (01) | LOC: LAB.S 15:07 | PROVIDERS: ATTEND Emergency Medicine | DX: I82.409 Acute embolism and thrombosis of unspecified deep veins of unspecified lower extremity (principal); I74.9 Embolism and thrombosis of unspecified artery | CPT/HCPCS: 85610 ==

== ENCOUNTER 2018-10-17 12:04 | Outpatient (CLI) | payer MEDICARE | END 2018-10-17 12:05 | disposition home or self-care (01) | LOC: LAB.S 12:04 | PROVIDERS: ATTEND Emergency Medicine | DX: I82.409 Acute embolism and thrombosis of unspecified deep veins of unspecified lower extremity (principal); I74.9 Embolism and thrombosis of unspecified artery | CPT/HCPCS: 85610 ==

== ENCOUNTER 2018-11-09 14:46 | Outpatient (CLI) | payer MEDICARE | END 2018-11-09 14:47 | disposition home or self-care (01) | LOC: LAB.S 14:46 | PROVIDERS: ATTEND Emergency Medicine | DX: I82.409 Acute embolism and thrombosis of unspecified deep veins of unspecified lower extremity (principal); I74.9 Embolism and thrombosis of unspecified artery | CPT/HCPCS: 85610 ==

== ENCOUNTER 2018-12-07 14:01 | Outpatient (CLI) | payer MEDICARE | END 2018-12-07 14:02 | disposition home or self-care (01) | LOC: LAB.S 14:01 | PROVIDERS: ATTEND Emergency Medicine | DX: I82.409 Acute embolism and thrombosis of unspecified deep veins of unspecified lower extremity (principal); I74.9 Embolism and thrombosis of unspecified artery | CPT/HCPCS: 85610 ==

== ENCOUNTER 2019-01-11 13:53 | Outpatient (CLI) | payer MEDICARE | END 2019-01-11 13:54 | disposition home or self-care (01) | LOC: LAB.S 13:53 | PROVIDERS: ATTEND Emergency Medicine | DX: I82.409 Acute embolism and thrombosis of unspecified deep veins of unspecified lower extremity (principal); I74.9 Embolism and thrombosis of unspecified artery | CPT/HCPCS: 85610 ==

== ENCOUNTER 2019-03-08 13:30 | Outpatient (CLI) | payer MEDICARE | END 2019-03-08 13:31 | disposition home or self-care (01) | LOC: LAB.S 13:30 | PROVIDERS: ATTEND Emergency Medicine | DX: I82.409 Acute embolism and thrombosis of unspecified deep veins of unspecified lower extremity (principal); I74.9 Embolism and thrombosis of unspecified artery | CPT/HCPCS: 85610 ==

== ENCOUNTER 2019-03-20 13:27 | Outpatient (CLI) | payer MEDICARE | END 2019-03-20 13:28 | disposition home or self-care (01) | LOC: LAB.S 13:27 | PROVIDERS: ATTEND Emergency Medicine | DX: I82.409 Acute embolism and thrombosis of unspecified deep veins of unspecified lower extremity (principal); I74.9 Embolism and thrombosis of unspecified artery | CPT/HCPCS: 85610 ==

== ENCOUNTER 2019-04-11 08:00 | Outpatient (CLI) | payer MEDICARE | END 2019-04-11 23:59 | disposition home or self-care (01) | LOC: LAB.S 08:00 | PROVIDERS: ATTEND Emergency Medicine | DX: I82.409 Acute embolism and thrombosis of unspecified deep veins of unspecified lower extremity (principal); I74.9 Embolism and thrombosis of unspecified artery | CPT/HCPCS: 85610 ==

== ENCOUNTER 2019-05-02 14:46 | Outpatient (CLI) | payer MEDICARE | END 2019-05-02 14:47 | disposition home or self-care (01) | LOC: LAB.S 14:46 | PROVIDERS: ATTEND Emergency Medicine | DX: I82.409 Acute embolism and thrombosis of unspecified deep veins of unspecified lower extremity (principal); I74.9 Embolism and thrombosis of unspecified artery | CPT/HCPCS: 85610 ==

== ENCOUNTER 2019-05-30 12:10 | Outpatient (CLI) | payer MEDICARE | END 2019-05-30 12:11 | disposition home or self-care (01) | LOC: LAB 12:10 | PROVIDERS: ATTEND Emergency Medicine | DX: I82.409 Acute embolism and thrombosis of unspecified deep veins of unspecified lower extremity (principal); I74.9 Embolism and thrombosis of unspecified artery | CPT/HCPCS: 85610 ==

== ENCOUNTER 2019-07-11 14:50 | Outpatient (CLI) | payer MEDICARE | END 2019-07-11 14:51 | disposition home or self-care (01) | LOC: LAB 14:50 | PROVIDERS: ATTEND Emergency Medicine | DX: I74.9 Embolism and thrombosis of unspecified artery (principal); I82.409 Acute embolism and thrombosis of unspecified deep veins of unspecified lower extremity | CPT/HCPCS: 85610 ==

== ENCOUNTER 2019-08-30 13:25 | Outpatient (CLI) | payer MEDICARE ==
[2019-08-30 20:26] LABS: BASOPHILS % (AUTO) 1.2 %; EOSINOPHILS # (AUTO) 0.2 10^3/uL (0.0-0.7); LYMPHOCYTES # (AUTO) 0.7 10^3/uL (1.5-3.5); LYMPHOCYTES % (AUTO) 22.1 %; MEAN CORPUSCULAR HEMOGLOBIN 22.5 pg (27.0-31.0); MEAN CORPUSCULAR HGB CONC 28.4 g/dL (32.0-36.0); MEAN CORPUSCULAR VOLUME 79.3 fL (80.0-94.0); MONOCYTES # (AUTO) 0.6 10^3/uL (0.0-1.0); MONOCYTES % (AUTO) 18.2 %; NEUTROPHILS # (AUTO) 1.7 10^3/uL (1.5-6.6); NEUTROPHILS % (AUTO) 51.2 %; PLT - PLATELET COUNT 182 10^3/uL (130-450); RED BLOOD COUNT 2.75 10^6/uL (4.70-6.10); RED CELL DISTRIBUTION WIDTH 21.7 % (12.0-15.0); WHITE BLOOD COUNT 3.3 x10^3/uL (4.8-10.8)
[2019-08-30 21:37] LABS: PLATELET ESTIMATE, MANUAL NORMAL (130-450,000) (NORMAL); PLATELET MORPHOLOGY NORMAL APPEARANCE (NORMAL)
[2019-08-30 21:45] LABS: HGB - HEMOGLOBIN 6.2 g/dL (14.0-18.0)
== END 2019-08-30 13:26 | disposition home or self-care (01) ==
LOC: LAB.S 13:25
PROVIDERS: ATTEND Physician Assistant
DX: D50.9 Iron deficiency anemia, unspecified (principal)
CPT/HCPCS: 36415; 85025

== ENCOUNTER 2019-10-16 14:54 | Outpatient (CLI) | payer MEDICARE ==
[2019-10-16 19:56] LABS: BASOPHILS % (AUTO) 0.8 %; EOSINOPHILS # (AUTO) 0.1 10^3/uL (0.0-0.7); EOSINOPHILS % (AUTO) 2.8 %; LYMPHOCYTES # (AUTO) 1.3 10^3/uL (1.5-3.5); LYMPHOCYTES % (AUTO) 33.9 %; MEAN CORPUSCULAR HGB CONC 28.3 g/dL (32.0-36.0); MEAN CORPUSCULAR VOLUME 81.3 fL (80.0-94.0); MEAN PLATELET VOLUME 10.8 fL (7.4-11.4); MONOCYTES # (AUTO) 0.6 10^3/uL (0.0-1.0); MONOCYTES % (AUTO) 14.5 %; NEUTROPHILS # (AUTO) 1.8 10^3/uL (1.5-6.6); NEUTROPHILS % (AUTO) 47.5 %; PLT - PLATELET COUNT 206 10^3/uL (130-450); RED BLOOD COUNT 2.35 10^6/uL (4.70-6.10); RED CELL DISTRIBUTION WIDTH 18.5 % (12.0-15.0); WHITE BLOOD COUNT 3.9 x10^3/uL (4.8-10.8)
[2019-10-16 20:23] LABS: HGB - HEMOGLOBIN 5.4 g/dL (14.0-18.0)
== END 2019-10-16 14:55 | disposition home or self-care (01) ==
LOC: LAB.S 14:54
PROVIDERS: ATTEND Physician Assistant
DX: D64.9 Anemia, unspecified (principal)
CPT/HCPCS: 36415; 85025

== ENCOUNTER 2019-10-17 10:09 | Inpatient (IN) | payer MEDICARE ==
[2019-10-17 10:51] LABS: BASOPHILS % (AUTO) 0.5 %; EOSINOPHILS # (AUTO) 0.1 10^3/uL (0.0-0.7); EOSINOPHILS % (AUTO) 1.6 %; LYMPHOCYTES # (AUTO) 0.8 10^3/uL (1.5-3.5); LYMPHOCYTES % (AUTO) 22.7 %; MEAN CORPUSCULAR HEMOGLOBIN 22.9 pg (27.0-31.0); MEAN CORPUSCULAR HGB CONC 28.8 g/dL (32.0-36.0); MEAN CORPUSCULAR VOLUME 79.4 fL (80.0-94.0); MEAN PLATELET VOLUME 10.1 fL (7.4-11.4); MONOCYTES # (AUTO) 0.5 10^3/uL (0.0-1.0); MONOCYTES % (AUTO) 14.2 %; NEUTROPHILS # (AUTO) 2.2 10^3/uL (1.5-6.6); NEUTROPHILS % (AUTO) 60.5 %; PLT - PLATELET COUNT 198 10^3/uL (130-450); RED BLOOD COUNT 2.23 10^6/uL (4.70-6.10); WHITE BLOOD COUNT 3.7 x10^3/uL (4.8-10.8)
[2019-10-17 10:54] LABS: HGB - HEMOGLOBIN 5.1 g/dL (14.0-18.0)
[2019-10-17] MEDS ORDERED: ACETAMINOPHEN 325 MG TABLET PO STA (10:55)
[2019-10-17] MEDS ORDERED: diphenhydrAMINE INJ 50 MG/ML VIAL IVP STA (10:55)
[2019-10-17 11:03] LABS: ALBUMIN 3.9 g/dL (3.2-5.5); ALBUMIN/GLOBULIN RATIO 1.8 (1.0-2.2); BILIRUBIN,TOTAL 0.7 mg/dL (0.2-1.0); CALCIUM 8.7 mg/dL (8.5-10.3); CREATININE 0.9 mg/dL (0.6-1.2); TOTAL PROTEIN 6.1 g/dL (6.7-8.2)
[2019-10-17 11:04] LABS: INR 1.4 (0.8-1.2); PT - PROTHROMBIN TIME 15.8 secs (9.9-12.6)
--- NOTE | 2019-10-17 11:20 | ED Physician Documentation ---
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 His notes that over the past 2 weeks she has seen him slowdown in his activity he is more pale than usual. The patient denies any dark or tarry stool. He has had lower endoscopy and he has not had upper endoscopy as he was not able to schedule this. Review of Systems Constitutional: denies: Fever, Chills Eyes: denies: Decreased vision Ears: denies: Ear pain Nose: denies: Congestion Throat: denies: Sore throat Cardiac: denies: Chest pain / pressure, Palpitations Respiratory: denies: Dyspnea, Cough GI: denies: Abdominal Pain, Nausea, Vomiting, Constipation, Diarrhea, Bloody / black stool : denies: Dysuria, Frequency Skin: denies: Rash Musculoskeletal: denies: Neck pain, Back pain, Extremity pain Neurologic: reports: Generalized weakness. denies: Focal weakness, Numbness PD PAST MEDICAL HISTORY - Past Medical History Respiratory: Asthma - Past Surgical History Past Surgical History: Yes HEENT: Cataracts - Present Medications Home Medications: Ambulatory Orders Medication Instructions Recorded Confirmed Albuterol Sulfate [Proair Hfa] 1 puffs PO Q4H PRN 12/25/12 03/01/17 Beclomethasone Dipropionate [Qvar] 1 puffs PO DAILY 06/06/15 03/01/17 atenoloL [Atenolol] 25 mg PO DAILY 06/06/15 03/01/17 Warfarin [Coumadin] 5 mg PO DAILY 03/01/17 03/01/17 Cephalexin [Keflex] 500 mg PO Q6H #20 capsule 10/02/17 - Allergies Allergies/Adverse Reactions: Allergies Allergy/AdvReac Type Severity Reaction Status Date / Time No Known Drug Allergies Allergy Verified 10/17/19 10:20 - Social History Does the pt smoke?: Yes Smoking Status: Current every day smoker Does the pt drink ETOH?: Yes Does the pt have substance abuse?: No - Immunizations Immunizations are current?: Yes - POLST Patient has POLST: No PD ED PE NORMAL - Vitals Vital signs reviewed: Yes (Normal) - General General: Alert and oriented X 3, Well developed/nourished, Other (Pale appearing but in no distress) - HEENT HEENT: Atraumatic, PERRL, EOMI - Neck Neck: Supple, no meningeal sign, No bony TTP - Cardiac Cardiac: RRR, No murmur - Respiratory Respiratory: No respiratory distress, Clear bilaterally, Other ([place] chested) - Abdomen Abdomen: Normal bowel sounds, Soft, Non tender, Non distended, No organomegaly - Rectal Rectal: Other (Normal sphincter tone brown stool.) - Back Back: No CVA TTP, No spinal TTP - Derm Derm: Warm and dry, No rash, Other (Pale in color) - Extremities Extremities: No deformity, Other (Trace edema bilaterally to the calves) - Neuro Neuro: Alert and oriented X 3, sales trainee 2-12 intact, No motor deficit, No sensory deficit, Normal speech Eye Opening: Spontaneous Motor: Obeys Commands Verbal: Oriented GCS Score: 15 - Psych Psych: Normal mood, Normal affect Results - Vitals Vitals: Vital Signs - 24 hr 10/17/19 10:18 Temperature 36.7 C Heart Rate 65 Respiratory 18 Rate Blood Pressure 123/60 O2 Saturation 100 Oxygen O2 Source Room air - Labs Labs: Microbiology 10/17/19 11:20 Occult Blood - Final Stool Laboratory Tests 10/17/19 10/17/19 10/17/19 10:35 10:35 10:35 WBC 3.7 L RBC 2.23 L Hgb 5.1 L* Hct 17.7 L* MCV 79.4 L MCH 22.9 L MCHC 28.8 L RDW 18.0 H Plt Count 198 MPV 10.1 Neut # (Auto) 2.2 Lymph # (Auto) 0.8 L [place] # (Auto) 0.5 Eos # (Auto) 0.1 Baso # (Auto) 0.0 Absolute Nucleated RBC 0.00 Nucleated RBC % 0.0 PT 15.8 H INR 1.4 H Sodium Potassium Chloride Carbon Dioxide Anion Gap BUN Creatinine Estimated GFR (MDRD) Glucose Calcium Total Bilirubin AST ALT Alkaline Phosphatase Total Protein Albumin Globulin Albumin/Globulin Ratio Lipase Blood Type A POSITIVE Blood Type Recheck Antibody Screen NEGATIVE Crossmatch IS Only See Detail 10/17/19 10/17/19 10:35 11:02 WBC RBC Hgb Hct MCV MCH MCHC RDW Plt Count MPV Neut # (Auto) Lymph # (Auto) [place] # (Auto) Eos # (Auto) Baso # (Auto) Absolute Nucleated RBC Nucleated RBC % PT INR Sodium 133 L Potassium 4.1 Chloride 101 Carbon Dioxide 26 Anion Gap 6.0 BUN 31 H Creatinine 0.9 Estimated GFR (MDRD) 83 L Glucose 97 Calcium 8.7 Total Bilirubin 0.7 AST 22 ALT 15 Alkaline Phosphatase 41 L Total Protein 6.1 L Albumin 3.9 Globulin 2.2 Albumin/Globulin Ratio 1.8 Lipase 34 Blood Type Blood Type Recheck A POSITIVE Antibody Screen Crossmatch IS Only PD MEDICAL DECISION MAKING - ED course Complexity details: reviewed old records, reviewed results, re-evaluated patient, considered differential, d/w patient, d/w family ED course: 69-year-old male who is on Pradaxa for recurrent DVT has had issue with Anemia and he required a 4 unit transfusion 2 months ago. He has his follow-up with his primary for blood work yesterday and was asked to come to the emergency department today. Today he is found to be guaiac positive on his stool. Prior studies have been negative. He has had lower endoscopy and not upper endoscopy he will require transfusion today and is below the critical threshold and admission is prudent Departure - Departure Disposition: [address] [facility] DC/Xfer Clinical Impression: Anemia Qualifiers: Anemia type: iron deficiency Iron deficiency anemia type: chronic blood loss Qualified Code(s): D50.0 - Iron deficiency anemia secondary to blood loss (chronic) GI bleeding Qualifiers: GI bleed type/associated pathology: unspecified gastrointestinal hemorrhage type Qualified Code(s): K92.2 - Gastrointestinal hemorrhage, unspecified Condition: Serious
[2019-10-17] MEDS ORDERED: PANTOPRAZOLE 40 MG VIAL IVP STA (12:17)
[2019-10-17] MEDS ORDERED: SODIUM CHLORIDE FLUSH 0.9% 10 ML SYRINGE IVP PRN (12:26)
--- NOTE | 2019-10-17 12:39 | HISTORY & PHYSICAL EXAMINATION ---
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 Preston Hua due to severe anemia (per patient "low blood counts") noted on yesterdays 10/15 lab check . Hgb 5.1/17.7 with + hemoccult stool in ED but hemodynamically stable. 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 (DVT Dx here 09/2015) Denies ibuprofen aleve, ASA or the like.Patient denied associated symptoms (although on interview he does have symtpoms which he is not attributing to marked anemia e.g Fall while weedwacking which he insists is only bc he was on a hill). He does not have associated chest pain or pressure, shortness of breath, denies near syncope He denies any obvious blood loss, no melena, no hematochezia, no black stool. Self caths, but no hematuria, no easy brusing . No known chronic hematologic disorder. reports oral iron, but doesnt recall w/u for HANNA. unknown if had w/u for possible hematologic disorder. He was still on coumadin 2-3 mos ago (for DVT hx)when he was found to be anemic at [facility] and got 4 u PRBCs and changed to xarelto at that time. He denies having a marked supratherapeutic INR when on warfarin, at worst INR 3..5, usu, 2-3.(here once in ED 09/2017)for hematuria after self cath w/ INR 4.0) No other hx of GIB but had presentation here 05/2015 for BRBPR; hemorrhoids. Also seen here at 09/2016 w/ Hgb 8 (referred by PCP) asymptomatic, ED after d/w [facility] provider agreed outpatient w/u. Unknown what outpatientw/u of anemia at that time in 2016. tHe reports uninformative colonoscopy as outpatient with what he reports was an excellent prep, and EGD could not proceed due to inadequate sedation. was told he "didnt tolerate" the start of EGD and needed anesthesia In the ED he already was ordered 1 u PRBCs (with 2 more available). He was unaware that after he tested hemocult + the recommendation was to admit for additonal prbc's and possible EGD in AM. Very anxious about being in hospital, after ~ 40 minute discussion, he was much relieved and aggreeable to admission once he realized his can stay with him. Wants to eat but aware need to d/w surgeon ?plan for EGD 10/17 or other before solid food ordered. Code status; wishes to address with History - Past Medical History Cardiovascular: reports: Hypertension (on low dose atenolol, denies palpitations, unsure of actual diagnosis "pcp said I probably didnt really need it (atenolol)), Deep vein thrombosis (remote hx LLE DVT, then DVT 09/[address] [facility] posteror tibial; on anticoag since), Arrhythmia Respiratory: reports: Asthma Neuro: reports: None : reports: Retention (self cathing since 2015, dystonic bladder hx of UTI's , last 10/07; more careful with cathing) HEENT: reports: Chronic hearing loss Psych: reports: Anxiety (primary re: hospitals A friend said "thats where you go to ") MRSA Hx?: No - Past Surgical History HEENT: reports: Cataracts - Family & Social History Family History: Mother: CAD (age 28 per patient "heartattack"), Father: Alive and Well (age 90) Family History Comment/Other: healthy siblings,no children Living arrangement: At home, Other ( ) Living Situation: With spouse/s.o. (with Lit, 38 years) - Substance History Use: Uses substance without health or social issues: Other (Denies tobacco history, drinks maybe 3 drinks /week sometimes) - POLST Patient has POLST: No Meds/Allgy - Home Medications Home Medications: Ambulatory Orders Medication Instructions Recorded Confirmed Albuterol Sulfate [Proair Hfa 1 puffs PO Q4H PRN 12/25/12 10/17/19 Inhaler] Ciclesonide [Alvesco] 1 puffs INH BID 10/17/19 10/17/19 Ferrous Sulfate 325 mg PO DAILYWM 10/17/19 10/17/19 Multivitamin [Theragran] 1 each PO DAILY 10/17/19 10/17/19 Atenolol [Tenormin] 25 mg PO DAILY #30 tablet 10/18/19 Pantoprazole [Protonix] 40 mg PO BID #60 tablet 10/18/19 - Allergies Allergies/Adverse Reactions: Allergies Allergy/AdvReac Type Severity Reaction Status Date / Time No Known Drug Allergies Allergy Verified 10/17/19 10:20 Review of Systems - Constitutional Constitutional: denies: Diaphoresis, Weight gain, Weight loss - Eyes Eyes: reports: Vision loss, Dipolpia. denies: Blurred vision - Ears, Nose & Throat Ears, Nose & Throat: reports: Hearing loss. denies: Nosebleeds - Cardiovascular Cariovascular: reports: Edema, Lightheadedness (rarely). denies: Palpitations, Chest pain, Syncope, Exertional dyspnea - Respiratory Respiratory: denies: Cough, Wheezing, Orthopnea, SOB at rest, SOB with exertion - Gastrointestinal Gastrointestinal: denies: Abdominal pain, Abdominal distention, Constipation, Diarrhea, Change in bowel habits, Black stools, Bloody stools, Nausea, Vomiting - Genitourinary Genitourinary: reports: Other (has been self cathing for years for dystonic bladder, Denies recent UTI , (but has had in past)) - Musculoskeletal Musculoskeletal: reports: Other (as per HPI, fall while using weed denise). denies: Limited range of motion, Joint pain, Joint swelling - Neurological Neurological: denies: Focal weakness, Headache, Dizziness, Incoordination - Psychiatric Psychiatric: reports: Anxiety (as per HPI, anxiety limited to hospitals, not on anxioltyic) - Endocrine Endocrine: denies: Polyuria, Polydypsia - Hematologic/Lymphatic Hematologic/Lymphatic: reports: Blood clots (as per PMH, hx DVTs). denies: Bruising, Petechiae Exam - Vital Signs Reviewed Vital Signs: Yes Vital Signs: Vital Signs x48h Temp Pulse Resp BP Pulse Ox 10/17/19 12:25 36.8 C 71 18 102/56 L 10/17/19 12:20 73 17 102/56 L 99 10/17/19 10:18 36.7 C 65 18 123/60 100 - Physical Exam General Appearance: positive: Alert, Mild distress, Anxious (sitting up in chair in ED , general pallor , but far less than expected for Hgb of 5.1, , was unaware recommendation was to admit, very anxious about prospect of staying in hospital,but relieved that can stay hard of hearing) Eyes Bilateral: positive: EOMI, No scleral icterus. negative: Conjunctivae nml (conjunctival pallor bilat) ENT: positive: Other (has own teeth, sl dry tongue) Neck: positive: Nml inspection, Other. negative: Lymphadenopathy (R), Lymphadenopathy (L), Carotid bruit Respiratory: positive: No respiratory distress, Other (prominent lower rib cage) Cardiovascular: positive: Regular rate & rhythm, No murmur, Other (multiple small varicosities bilateral LE, dependent duskyness bilat feet when upright) Abdomen: positive: Nml bowel sounds, No distention, Other (no hematoma abd or flanks, no mass). negative: No organomegaly, Tenderness, Guarding, Hepatomegaly (no appreciable hepatomegaly) Skin: positive: Warm, Dry, Pallor, Other (no petechiae) Extremities: positive: Pedal edema, Other (very large ankles, feet, shins, no pitting, pedal edema bilat, but does not extend up shins) Neurologic/Psychiatric: positive: Oriented x3, Other (somewhat tangential in answering history questions). negative: Facial droop Conclusion/Plan - Problem List (1) Symptomatic anemia Conclusion/Plan: microcytic anemia likely GI source w/ + hemocult and BUN elevation hemodynamically stable transfuse 3 units then recheck Hct hgb goal 8 given repeat bleed will check iron studies No PPI indicated at this time Will order peripheral smear to check if cause other than blood loss Dont suspect hemolysis with this degree of anemia and Total bili 0.7 Surgery consult ; see #2 Wants to wait for to address code sttus (2) GI bleeding Conclusion/Plan: + hemocult in ED, nacho source of (slow) blood loss BUN elevation seems out of proportion to just prerenal Dr Becker consulted Planning repeat colonoscopy, EGD in am Patient aware clears only , NPO after MN CT abd/ pelvis per Dr Becker request Holding xarelto Will check troponin if any injury w/ markedly low hgb Addendum; late entry w/ CT results, mass suspicious for perforated ulcer, vs possible gastric malignancy and ? tracking of fluid/vs hemorrhage into gastric wall, will defer to Dr Becker if still pursuing colonoscopy given findings but, patient did start prep Qualifiers: GI bleed type/associated pathology: unspecified gastrointestinal hemorrhage type Qualified Code(s): K92.2 - Gastrointestinal hemorrhage, unspecified (3) Bladder dysfunction Conclusion/Plan: patient self caths brought in catheter Patient can continue self cath, follow I/O (5) History of DVT of lower extremity Conclusion/Plan: on chronic anticoagulation for recurrent DVT anticoagulation on hold if GI source of bleed found, ? need IVC filter? (not intended to be permanent SCD's while here will discuss w/ radiology (IR) if GI bleed source identified (unless source of bleed courrrectable (6) Asthma Conclusion/Plan: stable, takes bid INH albuterol at home scheduled per instructions rarely needs prn bronchodilator (7) Hypertension Conclusion/Plan: hold atenolol while evaluating / managing #1 - Lab Results Fish Bones: 10/18/19 13:55 10/18/19 04:45
[2019-10-17] MEDS ORDERED: NS W/20 MEQ KCL 1,000 ML IV SCH (13:00)
--- NOTE | 2019-10-17 14:51 | CONSULTATION NOTE ---
Referring Provider Name of Referring Provider:: Would be hospitalist service Consult Date: 10/17/19 Chief Complaint - Chief Complaint Chief Complaint: Acute blood loss anemia History of Present Illness - Admitted From Admitted From:: Emergency room - History Obtained From Records Reviewed: Patient and electronic medical record History obtained from: Patient and spouse Exam Limitations: None - History of Present Illness HPI Comment/Other: 69-year-old male who presents with symptomatic acute blood loss anemia to a hemoglobin of 5. Patient had recently been evaluated by lower endoscopy several months prior without any evidence of any bleeding diathesis within the colon. An upper endoscopy was attempted however patient could not tolerate but was suspected to be monitored anesthesia care. Patient is very active and has apprehension medical care and hospitals and is not eager to remain for evaluation. Denies a family history of personal history of inflammatory bowel disease or gastrointestinal malignancy. Does not recall the last time he underwent CT imaging. If ever it was several years prior. He does report dark stool, no bright red blood per rectum, no hematemesis. Has struggled with constipation and currently is on a daily regimen of MiraLAX. He has recently been transitioned from Coumadin to Xarelto at the time of his initial work-up for gastrointestinal bleeding/acute blood loss anemia. History - Past Medical History Cardiovascular: reports: Arrhythmia Respiratory: reports: Asthma Neuro: reports: None Endocrine/Autoimmune: reports: None GI: reports: None : reports: Other Psych: reports: None Musculoskeletal: reports: None Derm: reports: None MRSA Hx?: No - Past Surgical History General: reports: Other HEENT: reports: Cataracts - POLST Patient has POLST: No Meds/Allgy - Home Medications Home Medications: Ambulatory Orders Medication Instructions Recorded Confirmed Albuterol Sulfate [Proair Hfa] 1 puffs PO Q4H PRN 12/25/12 10/17/19 atenoloL [Atenolol] 25 mg PO DAILY 06/06/15 10/17/19 Ciclesonide [Alvesco] 1 puffs INH BID 10/17/19 10/17/19 Ferrous Sulfate 325 mg PO DAILYWM 10/17/19 10/17/19 Lactobacillus Rhamnosus GG 1 cap PO DAILY 10/17/19 10/17/19 [Culturelle] Multivitamin [Theragran] 1 each PO DAILY 10/17/19 10/17/19 Rivaroxaban [Xarelto] 20 mcg PO QDDINNER 10/17/19 10/17/19 - Allergies Allergies/Adverse Reactions: Allergies Allergy/AdvReac Type Severity Reaction Status Date / Time No Known Drug Allergies Allergy Verified 10/17/19 10:20 Exam - Vital Signs Reviewed Vital Signs: Yes Vital Signs: Vital Signs x48h Temp Pulse Resp BP Pulse Ox 10/17/19 14:03 72 19 122/79 99 10/17/19 13:00 75 16 121/82 H 95 10/17/19 12:40 37.0 C 73 16 103/68 10/17/19 12:30 36.8 C 74 15 119/81 H 10/17/19 12:25 36.8 C 71 18 102/56 L 10/17/19 12:20 73 17 102/56 L 99 10/17/19 10:18 36.7 C 65 18 123/60 100 - Physical Exam General Appearance: positive: No acute distress, Alert Eyes Bilateral: positive: Normal inspection, PERRL, EOMI ENT: positive: ENT inspection nml Neck: positive: Nml inspection Respiratory: positive: Chest non-tender, No respiratory distress, Breath sounds nml. negative: Wheezes, Rales, Rhonchi Cardiovascular: positive: Regular rate & rhythm Abdomen: positive: Non-tender, No distention. negative: Tenderness, Guarding, Rebound Extremities: positive: Non-tender, Full ROM, Nml appearance Neurologic/Psychiatric: positive: Oriented x3, CN's nml (2-12) Conclusion/Plan - Diagnosis Diagnosis: 1. Severe acute blood loss anemia. 2. Systemic anticoagulation. 3. Presyncope - Plan Plan: 1. Admit to floor/possible ICU, with hospitalist service 2. Large bore IVs for resuscitation. Hold systemic anticoagulation. 3. Transfuse as necessary with serial H&H's. 4. Plan upper endoscopy to evaluate source, will consider colonoscopy however given urgency of intervention will defer bowel prep at this time 5. Aggressive resuscitation 6. Bowel rest 7. PPI infusion and consider Carafate pending results Please note the patient was advised that although he has recently undergone colonoscopy, we would still want to do a complete work-up towards assuring there is no occult source. We will obviously begin with upper endoscopy to check what had not historically been evaluated in the way of the gastroesophagoduodenoscopy. Moreover we will proceed with the CT imaging of chest abdomen pelvis to rule out any occult sources to include possible fore- in mid-gut pathologies. Will ultimately determine the indication for proceeding with prep and lower endoscopy following complete review. - Lab Results Fish Bones: 10/18/19 04:45 10/18/19 04:45
[2019-10-17] MEDS ORDERED: IOVERSOL 320 100 ML VIAL IVP ONE ×2 (16:02→16:24)
--- NOTE | 2019-10-17 16:52 | CT Report ---
PROCEDURE: Abdomen/Pelvis W INDICATIONS: Lower hemoglobin with suspected occult bleeding. Evaluation for mass or source of bleed . CONTRAST: IV CONTRAST: Optiray 320 ml: 100 PO CONTRAST: *NO PO CONTRAST TECHNIQUE: After the administration of intravenous contrast, 5 mm thick sections acquired from the diaphragms to the symphysis. 5 mm thick coronal and sagittal reformats were acquired. For radiation dose reducti on, the following was used: automated exposure control, adjustment of mA and/or kV according to getachew ent size. COMPARISON: None. FINDINGS: Image quality: Excellent. ABDOMEN: Lung bases: Nonspecific pulmonary nodule on series 3 image 8 in the right lower lobe measuring approx imately 5 mm. Solid organs: No liver mass or intrahepatic biliary ductal dilatation. Spleen is unremarkable. Normal appearance of the pancreas and adrenal glands. Bilateral renal cysts. No evidence of solid renal mas s or hydronephrosis. Peritoneum and bowel: Suspected gastric mass in the greater curvature of the cardia. This is difficul t to delineate as no oral contrast was ordered/administered. Approximate dimensions of the mass are 4 .3 x 2.3 cm. There is thickening along the greater curvature adjacent to the mass. There also appears to be an intramural/submucosal fluid collection which may represent ulceration of the mass or hemorr ace into the mass. This is best appreciated on coronal images 21-25. Possibly also within this intra mural/some mucosal collection are small foci of anti-dependent air on axial image 27. Large volume of formed stool throughout the colon. Small bowel unremarkable, again evaluation limited by lack of IV contrast. Nodes and vessels: No threshold and large retroperitoneal or mesenteric lymph node. Nonaneurysmal abd ominal aorta with mild scattered atherosclerotic plaque and calcification. IVC is unremarkable. Pelvis: Marked prostatomegaly which indents the undersurface of the urinary bladder. No definite pros tatic mass identified. Urinary bladder is otherwise normal without wall thickening. No structural enl arged pelvic or inguinal lymph nodes. Bones: No suspicious bony lesions. No vertebral body compression fractures. IMPRESSION: Strong suspicion for perforated ulcer versus gastric neoplasm. There is thickening of the greater cur vature of the stomach and the cardiac region with an associated/adjacent crescentic submucosal/intram ural fluid collection The collection presumably represents aspiration of a neoplasm or contained perf oration from an ulcer, with tracking of fluid/hemorrhage in the gastric wall. There also appears to b e small foci of air in the intramural space within the collection, suggesting communication with the gastric lumen. Direct endoscopic visualization and tissue sampling are recommended. Reviewed by: Jason Linton MD on 10/17/2019 4:50 PM PDT Approved by: Jason Linton MD on 10/17/2019 4:50 PM PDT Station ID: [id number]
[2019-10-17] MEDS: SODIUM CHLORIDE FLUSH 0.9% 10 ML SYRINGE IVP SCH ×2 (16:55→23:50)
[2019-10-17 17:30] LABS: % IRON SATURATION 3 % (20-50); IRON 13 ug/dL (45-182); TOTAL IRON BINDING CAPACITY 452 ug/dL (250-450); TRANSFERRIN 323 mg/dL (180-329)
--- NOTE | 2019-10-17 17:40 | PHARMACY PROGRESS NOTE ---
- Best Possible Medication History Admit Date and Time: 10/17/19 1226 Processed by: Pharmacy Medication History completed: Yes Patient Interview: Completed Secondary Source(s): Spouse/Significant other, Pharmacy records, Insurance records As the person ultimately responsible for medication therapy, providers are able to order a medication from an existing home medication list in [facility] via the "Reconcile Routine" prior to Confirmation of that medication by cryptologic support specialist. Such practice is discouraged except when the physician, in their clinical judgment, deems that a medical need exists for a medication without regard to previous use.
[2019-10-17] MEDS: SODIUM/POTASSIUM/MAG SULFATES 354 ML PREP KIT PO SCH (18:04)
[2019-10-17] MEDS: ALBUTEROL 1 PUFF INH SCH (19:57)
[2019-10-18 00:03] LABS: MEAN CORPUSCULAR VOLUME 80.8 fL (80.0-94.0); MEAN PLATELET VOLUME 9.7 fL (7.4-11.4); RED BLOOD COUNT 2.6 10^6/uL (4.70-6.10); RED CELL DISTRIBUTION WIDTH 17.1 % (12.0-15.0); WHITE BLOOD COUNT 3.8 x10^3/uL (4.8-10.8)
[2019-10-18 00:06] LABS: HGB - HEMOGLOBIN 6.5 g/dL (14.0-18.0)
[2019-10-18 00:49] LABS: ABNORMAL LYMPHS % (MANUAL) 0 %; BAND NEUTROPHILS % (MANUAL) 0 %
[2019-10-18] MEDS ORDERED: ACETAMINOPHEN 325 MG TABLET PO PRN (00:57)
[2019-10-18] MEDS ORDERED: IPRATROPIUM/ALBUTEROL 3 ML NEB INH PRN (01:36)
[2019-10-18] MEDS: SODIUM/POTASSIUM/MAG SULFATES 354 ML PREP KIT PO SCH (01:42)
[2019-10-18 05:04] LABS: EOSINOPHILS % (AUTO) 4.3 %; LYMPHOCYTES % (AUTO) 29.7 %; MEAN CORPUSCULAR HEMOGLOBIN 24.3 pg (27.0-31.0); MEAN CORPUSCULAR HGB CONC 30.4 g/dL (32.0-36.0); MEAN CORPUSCULAR VOLUME 79.9 fL (80.0-94.0); MEAN PLATELET VOLUME 9.6 fL (7.4-11.4); MONOCYTES % (AUTO) 17.9 %; NEUTROPHILS % (AUTO) 46.8 %; PLT - PLATELET COUNT 167 10^3/uL (130-450); RED BLOOD COUNT 2.84 10^6/uL (4.70-6.10); RED CELL DISTRIBUTION WIDTH 16.9 % (12.0-15.0); WHITE BLOOD COUNT 3.9 x10^3/uL (4.8-10.8)
[2019-10-18 05:07] LABS: HGB - HEMOGLOBIN 6.9 g/dL (14.0-18.0)
[2019-10-18 05:10] LABS: CALCIUM 8.4 mg/dL (8.5-10.3); CREATININE 0.9 mg/dL (0.6-1.2)
[2019-10-18 05:26] LABS: EOSINOPHILS # (MANUAL) 0.1 10^3/uL (0-0.7); LYMPHOCYTES # (MANUAL) 1.2 10^3/uL (1.5-3.5); LYMPHOCYTES % (MANUAL) 30 %; MONOCYTES # (MANUAL) 0.5 10^3/uL (0.0-1.0); PLATELET ESTIMATE, MANUAL NORMAL (130-450,000) (NORMAL); PLATELET MORPHOLOGY NORMAL APPEARANCE (NORMAL); RBC MORPHOLOGY (MULTIPLE) 1+ MACROCYTOSIS (NORMAL)
[2019-10-18 05:27] LABS: DIFFERENTIAL COMMENT MANUAL DIFFERENTIAL
[2019-10-18] MEDS: ALBUTEROL 1 PUFF INH SCH (09:44)
--- NOTE | 2019-10-18 12:11 | ANESTHESIA ---
Pre-Anesthesia VS, & Labs - Diagnosis Diagnosis 1. Severe acute blood loss anemia 2. Systemic anticoagulation 3. Presyncope - Procedure EGD Vital Signs: Temp Pulse Resp BP Pulse Ox 36.4 C L 69 16 118/81 H 99 10/18/19 11:45 10/18/19 11:45 10/18/19 11:45 10/18/19 11:45 10/18/19 11:04 Height 6 ft 3 in Weight (kg) 89 kg Body Mass Index 24.5 - NPO >8 hours - Lab Results Current Lab Results: Laboratory Tests 10/18/19 04:45: Sodium 137, Potassium 3.6, Chloride 103, Carbon Dioxide 23, Anion Gap 11.0, BUN 26 H, Creatinine 0.9, Estimated GFR (MDRD) 83 L, Glucose 93, Calcium 8.4 L 10/18/19 04:45: WBC 3.9 L, RBC 2.84 L, Hgb 6.9 L*, Hct 22.7 L, MCV 79.9 L, MCH 24.3 L, MCHC 30.4 L, RDW 16.9 H, Plt Count 167, MPV 9.6, Neut # (Auto) BIOCHEMISTRY PROFESSOR, Lymph # (Auto) BIOCHEMISTRY PROFESSOR, [place] # (Auto) BIOCHEMISTRY PROFESSOR, Eos # (Auto) BIOCHEMISTRY PROFESSOR, Baso # (Auto) BIOCHEMISTRY PROFESSOR, Absolute Nucleated RBC BIOCHEMISTRY PROFESSOR, Total Counted 100, Band Neuts % (Manual) 0, Abnorm Lymph % (Manual) 0, Nucleated RBC % BIOCHEMISTRY PROFESSOR, Neutrophils # (Manual) 2.1, Lymphocytes # (Manual) 1.2 L, Monocytes # (Manual) 0.5, Eosinophils # (Manual) 0.1, Basophils # (Manual) 0.0, Differential Comment MANUAL DIFFERENTIAL, Platelet Estimate NORMAL (130-450,000), Platelet Morphology NORMAL APPEARANCE, RBC Morph Micro Appear 1+ MACROCYTOSIS 10/17/19 23:55: WBC 3.8 L, RBC 2.60 L, Hgb 6.5 L*, Hct 21.0 L, MCV 80.8, MCH 25.0 L, MCHC 31.0 L, RDW 17.1 H, Plt Count 173, MPV 9.7 10/17/19 11:02: Blood Type Recheck A POSITIVE 10/17/19 10:43: Ferritin 4.9 L 10/17/19 10:43: Iron 13 L, TIBC 452 H, % Saturation 3 L, Transferrin 323 10/17/19 10:43: Troponin I High Sens 5.6 10/17/19 10:35: Sodium 133 L, Potassium 4.1, Chloride 101, Carbon Dioxide 26, Anion Gap 6.0, BUN 31 H, Creatinine 0.9, Estimated GFR (MDRD) 83 L, Glucose 97, Calcium 8.7, Total Bilirubin 0.7, AST 22, ALT 15, Alkaline Phosphatase 41 L, Total Protein 6.1 L, Albumin 3.9, Globulin 2.2, Albumin/Globulin Ratio 1.8, Lipase 34 10/17/19 10:35: PT 15.8 H, INR 1.4 H 10/17/19 10:35: WBC 3.7 L, RBC 2.23 L, Hgb 5.1 L*, Hct 17.7 L*, MCV 79.4 L, MCH 22.9 L, MCHC 28.8 L, RDW 18.0 H, Plt Count 198, MPV 10.1, Neut # (Auto) 2.2, Lymph # (Auto) 0.8 L, [place] # (Auto) 0.5, Eos # (Auto) 0.1, Baso # (Auto) 0.0, Absolute Nucleated RBC 0.00, Nucleated RBC % 0.0 10/17/19 10:35: Blood Type A POSITIVE, Antibody Screen NEGATIVE, Crossmatch IS Only See Detail Fish Bones: 10/18/19 04:45 10/18/19 04:45 Home Medications and Allergies Home Medications: Ambulatory Orders Ciclesonide [Alvesco] 1 puffs INH BID 10/17/19 Ferrous Sulfate 325 mg PO DAILYWM 10/17/19 Lactobacillus Rhamnosus GG [Culturelle] 1 cap PO DAILY 10/17/19 Multivitamin [Theragran] 1 each PO DAILY 10/17/19 Rivaroxaban [Xarelto] 20 mcg PO QDDINNER 10/17/19 Active Medications Acetaminophen (Tylenol) 650 mg PO Q6HR PRN PRN Reason: Pain or Fever > 38C (100.4F) Last Admin: 10/18/19 01:17 Dose: 650 mg Documented by: Albuterol/Ipratropium (Duoneb) 3 ml INH Q4HR PRN PRN Reason: Wheezing Budesonide (Pulmicort) 0.5 mg INH RTBID [facility] Potassium Chloride/Sodium Chloride (Normal Saline 0.9% W/20 Meq Kcl) 1,000 mls @ 100 mls/hr IV .Q10H [facility] Last Infusion: 10/18/19 04:29 Dose: 100 mls/hr Documented by: Sodium Chloride (Normal Saline Flush 0.9%) 10 ml IVP PRN PRN PRN Reason: NEEDED PER PROVIDER ORDERS Sodium Chloride (Normal Saline Flush 0.9%) 10 ml IVP 0100,0900,1700 [facility] Last Admin: 10/17/19 23:50 Dose: 10 ml Documented by: Albuterol Sulfate [Proair Hfa] 1 puffs PO Q4H PRN 12/25/12 atenoloL [Atenolol] 25 mg PO DAILY 06/06/15 Ciclesonide [Alvesco] 1 puffs INH BID 10/17/19 Ferrous Sulfate 325 mg PO DAILYWM 10/17/19 Lactobacillus Rhamnosus GG [Culturelle] 1 cap PO DAILY 10/17/19 Multivitamin [Theragran] 1 each PO DAILY 10/17/19 Rivaroxaban [Xarelto] 20 mcg PO QDDINNER 10/17/19 Allergies/Adverse Reactions: Allergies Allergy/AdvReac Type Severity Reaction Status Date / Time No Known Drug Allergies Allergy Verified 10/17/19 10:20 Anes History & Medical History - Anesthetic History Anesthesia Complications: reports: No previous complications - Medical History Cardiovascular: reports: Arrhythmia Pulmonary: reports: Asthma Gastrointestinal: reports: None Urinary: reports: Other Neuro: reports: None Musculoskeletal: reports: None Endocrine/Autoimmune: reports: None Blood Disorders: reports: Anemia Skin: reports: None Smoking Status: Former smoker - Surgical History General: Other Eyes Ears Nose Throat (EENT): Cataracts Exam General: Alert, Oriented x3 Dental: WNL Mouth Opening: Greater than 4 Fingerbreadths Mallampati classification: I Thyromental Distance: greater than 6 cm Respiratory: Lungs clear Cardiovascular: Regular rate Plan Anesthesia Type: MAC Consent for Procedure(s) Verified and Reviewed: Yes Code Status: Attempt Resuscitation ASA classification: 2-Mild systemic disease Is this case an emergency?: No
[2019-10-18] MEDS ORDERED: PROPOFOL 500 MG/50 ML 500 MG/50 ML VIAL ONE (12:14)
[2019-10-18] MEDS ORDERED: LACTATED RINGERS 1,000 ML IV ONE (13:06)
[2019-10-18] MEDS ORDERED: IPRATROPIUM/ALBUTEROL 3 ML NEB INH ONE (13:25)
[2019-10-18 13:59] LABS: HGB - HEMOGLOBIN 7.6 g/dL (14.0-18.0); MEAN CORPUSCULAR HEMOGLOBIN 25.5 pg (27.0-31.0); MEAN CORPUSCULAR HGB CONC 31.3 g/dL (32.0-36.0); MEAN CORPUSCULAR VOLUME 81.5 fL (80.0-94.0); MEAN PLATELET VOLUME 9.7 fL (7.4-11.4); RED BLOOD COUNT 2.98 10^6/uL (4.70-6.10); RED CELL DISTRIBUTION WIDTH 17.3 % (12.0-15.0); WHITE BLOOD COUNT 2.9 x10^3/uL (4.8-10.8)
[2019-10-18] MEDS ORDERED: IOVERSOL 320 50 ML VIAL ONE (14:02)
[2019-10-18] MEDS ORDERED: NALOXONE 0.4 MG/ML VIAL IVP PRN (14:14)
[2019-10-18] MEDS ORDERED: HYDROmorphone 0.5 MG/0.5 ML SYRINGE IVP PRN (14:14)
[2019-10-18] MEDS ORDERED: fentaNYL 100 MCG/2 ML VIAL IVP PRN (14:14)
[2019-10-18] MEDS ORDERED: ONDANSETRON 4 MG/2 ML VIAL IVP PRN (14:14)
[2019-10-18] MEDS ORDERED: MORPHINE 2 MG/ML CARPUJECT IVP PRN (14:14)
[2019-10-18] MEDS ORDERED: ATROPINE ABBOJECT 1 MG/10 ML SYRINGE IVP PRN (14:14)
[2019-10-18] MEDS ORDERED: ePHEDrine 50 MG/ML VIAL IVP PRN (14:14)
[2019-10-18] MEDS ORDERED: METOCLOPRAMIDE 10 MG/2 ML VIAL IVP PRN (14:14)
--- NOTE | 2019-10-18 14:15 | ANESTHESIA POST OP EVALUATION ---
Anesthesia Post Eval - Post Anesthesia Eval Vitals: Last Vital Signs Temp 36.5 C 10/18/19 13:15 Pulse 68 10/18/19 13:27 Resp 19 10/18/19 13:27 BP 124/74 10/18/19 13:27 Pulse Ox 98 10/18/19 13:27 CV Function Including HR & BP: positive: Stable Pain Control: positive: Satisfactory Nausea & Vomiting: positive: Negative Mental Status: positive: Patient Participates Respiratory Status: Airway Patent Hydration Status: Satisfactory Anesthesia Complications: positive: None
[2019-10-18] MEDS ORDERED: LACTATED RINGERS 1,000 ML IV SCH (15:00)
[2019-10-18 16:21] VITALS: BP 117/67
--- NOTE | 2019-10-18 16:27 | CT Report ---
PROCEDURE: CT abdomen without IV contrast. INDICATIONS: orient mass since clip placement anterior stomach CONTRAST: IV CONTRAST: *NO IV CONTRAST PO CONTRAST: Optiray 320 ml50 TECHNIQUE: After the administration of oral contrast, 5 mm thick sections acquired from the diaphragms to the il iac crests. 5 mm thick coronal and sagittal reformats were acquired. For radiation dose reduction, the following was used: automated exposure control, adjustment of mA and/or kV according to patient size. COMPARISON: CT abdomen and pelvis 10/17/2019. FINDINGS: Image quality: Excellent. Lung bases: Right lower lobe pulmonary nodule with punctate calcification measuring 0.5 cm, (4/10). N o pleural effusion. Mild streaky opacity at the left lung base most likely atelectasis, slightly incr eased. Heart size is normal. Solid organs: Liver and spleen are normal in size and enhancement. Gallbladder is not identified. Biliary system is non dilated. Pancreas enhances normally. No adrenal nodules. Kidneys are normal in size, without hydronephrosis. Bilateral simple renal cysts. Peritoneum and bowel: Solid mass in the proximal stomach measuring approximately 4.3 x 3.5 cm, (3/18 ). Presumable endoscopically placed clip at the posterior inferior margin. Mass is circumscribed and appears submucosal or intraluminal. 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 No extravasation of enteric contrast. No obstruction. No free fluid or air. Nodes and vessels: No retroperitoneal or mesenteric adenopathy by size criteria. Aorta and inferior vena cava are normal in size. Bones: No suspicious bony lesions. No vertebral body compression fractures. Miscellaneous: No ventral hernias. IMPRESSION: 1. Solid mass in the proximal stomach measuring approximately 4.3 cm. Clip is at the posterior inferi or margin. 2. Right lower lobe pulmonary nodule measuring 0.5 cm. Punctate calcification raise the possibility o f partially calcified granula. -Consider follow-up chest CT in 12 months. Reviewed by: Jason Marlow MD on 10/18/2019 4:25 PM PDT Approved by: Jason Marlow MD on 10/18/2019 4:25 PM PDT Station ID: [id number]
--- NOTE | 2019-10-18 16:37 | Discharge Plan ---
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 Gene Becker/surgery was consulted On endoscopy on 10/17 a biopsy was taken and clip placed Outpatient surgery planned (Dr Becker trying to work out with [place] to arrange surgery for next Monday) Start Protonix (pantoprazole 40 mg twice daily; Rx at [facility]) History of leg blood clots/DVT Hold off on your xarelto until after surgery Ambulate regularly as you do Hold off on your Atenolol until Thursday 10/19 (resume 25 mg once daily) Additional Instructions or Follow Up instructions: DR Becker and your PCP will be in touch regarding surgery next week No Smoking: If you smoke, Please STOP! Call for help. Follow-up with: Preston Hua PA [Primary Care Provider] -
[2019-10-18] MEDS ORDERED: PANTOPRAZOLE 40 MG TABLET PO SCH (17:00)
--- NOTE | 2019-10-18 17:29 | PROVIDER PROGRESS NOTE ---
Progress Note 69-year-old man with history of DVT x2 on systemic anticoagulation initially with Coumadin however within recent months transition to 10 a inhibitor. Continues with profound and severe acute on chronic blood loss anemia presumptive gastrointestinal source. Attempted for colonoscopy which was unremarkable per patient at outside facility, however intolerant of esophagogastroduodenoscopy at that time under moderate sedation. He is undergone multiple transfusions this admission, x5 packed red cells. Anticoagulation has been discontinued and patient has been started on proton pump inhibitor therapy. Upper endoscopy revealed an anterior gastric mass along the greater curvature that was unable to be performed for polypectomy. 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 Discussed with local pathologist and stat orders accepted. Will await immunohistochemistry together with standard pathology on Monday. Patient plan going forward is as follows. 1. Hold systemic anticoagulation, avoid nonsteroidal anti-inflammatory agents, patient may take Tylenol as needed. 2. Soft diet, proton pump inhibitor Onur, call for any worrisome symptoms. 3. Await pathology, in the setting of this patient with his unique clinical circumstance including necessary systemic anticoagulation and a bleeding diathesis in the setting of a known gastric mass, would proceed with operative intervention as soon as is prudent/urgently. 4. Plan diagnostic laparoscopy and possible gastric wedge resection to remove this area of concern. We will plan on doing this next week given his high risk of rebleeding especially unnecessary anticoagulation in the setting of his historic DVT.
[2019-10-18] MEDS ORDERED: BUDESONIDE 0.5 MG/2 ML NEB INH SCH (19:00)
--- NOTE | 2019-10-18 20:32 | DISCHARGE SUMMARY ---
Physician: JOSIAH Vegas DATE OF ADMISSION: 10/17/2019 DATE OF DISCHARGE: 10/18/2019 PRIMARY CARE PHYSICIAN: Dr. Preston uHa with [facility]. PRINCIPAL REASON FOR ADMISSION 1. Symptomatic anemia. 2. Gastrointestinal bleed. 3. Atonic bladder. 4. History of lower extremity deep venous thrombosis on chronic anticoagulation. 5. Asthma. 6. History of irregular heart rate on atenolol. DISCHARGE DIAGNOSES 1. Anemia, resolved with 5 units packed red blood cells. 2. Gastrointestinal bleed, source identified as gastric mass/ pathology pending but suspicious for GIST tumor 3. DVT history ; anticoagulation on hold until gastric mass resection CONSULTATIONS: General Surgery/ Dr. Gene Becker on 10/17/2019 PROCEDURES: Endoscopy 10/[address] Gene Becker. Findings notable for a polypoid shaped mass 3 x 3 cm from the greater curvature of the stomach, unable to perform snare polypectomy due to size , biopsies taken/ were sent for histology. DIAGNOSTIC IMAGING STUDIES CT of the abdomen and pelvis on 10/16. Findings notable for perforated ulcer versus gastric neoplasm with thickening of the greater curvature of the stomach and cardiac region with possible intramural fluid collection. There is also a small foci of air in the intramural space within the collection suggesting communication with the gastric lumen. Repeat abdomen CT on 10/17 to evaluate clip placement following endoscopy, notes a solid mass in the proximal stomach measuring approximately 4.3 cm with a clip at the inferior margin. Also of note, there is a right lower lobe pulmonary nodule measuring 0.5 cm, that appears most consistent with a calcified granula. Consider repeat CT in 12 months. LABORATORY DATA: Notable for a hemoglobin and hematocrit on admission of 5.1 and 17.7, respectively. After 5 units of packed red blood cells his hemoglobin is 7.6 and hematocrit is 24.3. His chemistries were notable for a BUN of 31 on admission, 26 on day 2. This likely reflects a slow GI blood loss. Iron studies notable for a ferritin of 4.9, TIBC of 452, iron of 13 and a percent sat of 3, transferrin 323. BRIEF HOSPITAL COURSE BY PROBLEM 1. Marked symptomatic anemia. Patient presented to the ER after being told his hemoglobin and hematocrit checked at an outside clinic were markedly low. His hemoglobin was 5.1. Patient was remarkably asymptomatic with that, although he had been fatigued. There was no hemodynamic instability. He was initially reluctant to be hospitalized, but after a total of 5 units of blood, his hemoglobin was 7.6 and he acknowledged he felt significantly improved. He was prepped for a repeat endoscopy and colonoscopy on the evening of admission after consulting with Dr. Gene Becker of general surgery. However, a CT done before procedure identified a likely mass versus perforated ulcer in his stomach. The plan for the colonoscopy was aborted and he had an endoscopy done on 10/17 with findings suspicious for a GIST tumor. The size of the tumor did not allow resection at the time of the endoscopy, and Dr. Becker plans to possibly resect it on Monday as an outpatient once he confers with the patient's primary care provider and [facility]. Patient is comfortable with this plan. This was likely the source of his bleed. Iron studies c/w Iron deficiency anemia. He will continue iron . 5 units should have offered a good iron load. Discharge instructions include Rx for 40 mg bid pantoprazole 2. History of deep venous thrombosis (09/2015 occlusive posterior tibial), on anticoagulation. Patient has been on Xarelto, that Xarelto is on hold until the procedure, risk and benefit is in favor of holding anticoagulation until the chronically bleeding mass is removed. Patient is aware to continue ambulating to minimize risk of DVT in the meantime. consider low dose (5000 u UFH or prophylactic dose lovenox 40 mg perioperatively including day of surgery). 3. History of irregular heart rate. Patient is on atenolol for what he says is an occasional irregular heart rate. He has not recently experienced palpitations. The beta luis is a very low dose of atenolol 25 mg, which has been held while he was here, especially as his systolic was relatively low in the low 100s. Since ideally he would not normally stop the beta luis shortly before surgical procedure due to known cardiac risks of stopping beta luis, he is advised to resume that low dose atenolol on Monday. Of note, he has no known history of coronary artery disease, remained active with a hgb of 5, and after the stress test of having a hemoglobin of 5, he had no troponin elevation. 4. History of urinary retention. Patient continues to straight cath and has no issues with that. DISCHARGE MEDICATIONS 1. Protonix 40 mg twice daily per Dr. Becker' request. 2. Atenolol 25 mg once daily to resume on Thursday 10/19. 3. Albuterol sulfate 1 puff every 4 hours if needed for wheezing. 4. Alvesco or ciclesonide 1 puff inhaled twice daily. 5. Ferrous sulfate 325 mg once daily. DISCHARGE PHYSICAL EXAMINATION VITAL SIGNS: Heart rate 60-71, blood pressure 117/67 with no significant orthostatic changes on position change, 100% on room air oxygenation. Patient is a pleasant older 69-year-old who appears stated age. HEENT: Anicteric sclerae. Conjunctival pallor is much improved from the time of admission. Oral mucosa is moist. NECK: Supple. He has no appreciable lymphadenopathy. CHEST: Clear to auscultation with no appreciable wheezing. He has a pigeon chest deformity. HEART: Regular S1, S2, with no appreciable sounds. ABDOMEN: Scaphoid. He has positive bowel sounds. Soft, nontender, and no appreciable organomegaly. EXTREMITIES: His extremities are very large, although not edematous with multiple spider veins and trace to +1 pedal. Patient is ambulatory in the room without difficulty. cc: FORTINO Varela TD: 10/18/2019 19:55 MTDD
== END 2019-10-18 18:53 | disposition home or self-care (01) | DRG 812 ==
LOC: ED 10:09 → MS2 12:26
PROVIDERS: ADMIT Nurse Practitioner; ATTEND Nurse Practitioner
PROC: 30233N1 Transfusion of Nonautologous Red Blood Cells into Peripheral Vein, Percutaneous Approach (ICD-10-PCS; 2019-10-18)
PROC: 0DB68ZX Excision of Stomach, Via Natural or Artificial Opening Endoscopic, Diagnostic (ICD-10-PCS; principal; 2019-10-18 13:45)
DX: D50.0 Iron deficiency anemia secondary to blood loss (chronic) (principal); D62 Acute posthemorrhagic anemia; K92.2 Gastrointestinal hemorrhage, unspecified; F17.200 Nicotine dependence, unspecified, uncomplicated; K31.89 Other diseases of stomach and duodenum; J45.909 Unspecified asthma, uncomplicated; R91.1 Solitary pulmonary nodule; I49.9 Cardiac arrhythmia, unspecified; I10 Essential (primary) hypertension; N31.9 Neuromuscular dysfunction of bladder, unspecified; R33.9 Retention of urine, unspecified; H91.90 Unspecified hearing loss, unspecified ear; H53.2 Diplopia; H53.8 Other visual disturbances; Z79.01 Long term (current) use of anticoagulants; Z79.51 Long term (current) use of inhaled steroids; Z79.899 Other long term (current) drug therapy; Z86.718 Personal history of other venous thrombosis and embolism; Z87.440 Personal history of urinary (tract) infections; Z87.891 Personal history of nicotine dependence
CPT/HCPCS: 36415; 36430; 74160; 74177; 80048; 80053; 82272; 82728; 83540; 83690; 84466; 84484; 85025; 85027; 85610; 86850; 86900; 86901; 86920; 88305; 88341; 88342; 96374; 99285; A9270; J1200; J7120; P9016; Q9967

== ENCOUNTER 2019-10-30 16:09 | Outpatient (CLI) | payer MEDICARE ==
[2019-10-30 16:21] LABS: BASOPHILS # (AUTO) 0.1 10^3/uL (0.0-0.1); EOSINOPHILS # (AUTO) 0.2 10^3/uL (0.0-0.7); EOSINOPHILS % (AUTO) 4.5 %; HGB - HEMOGLOBIN 7.3 g/dL (14.0-18.0); LYMPHOCYTES % (AUTO) 19.6 %; MEAN CORPUSCULAR HEMOGLOBIN 25.2 pg (27.0-31.0); MEAN CORPUSCULAR HGB CONC 30.3 g/dL (32.0-36.0); MEAN CORPUSCULAR VOLUME 83.1 fL (80.0-94.0); MONOCYTES # (AUTO) 0.7 10^3/uL (0.0-1.0); MONOCYTES % (AUTO) 13.1 %; NEUTROPHILS # (AUTO) 3.1 10^3/uL (1.5-6.6); NEUTROPHILS % (AUTO) 61.4 %; PLT - PLATELET COUNT 274 10^3/uL (130-450); RED CELL DISTRIBUTION WIDTH 17.9 % (12.0-15.0); WHITE BLOOD COUNT 5.1 x10^3/uL (4.8-10.8)
== END 2019-10-30 16:10 | disposition home or self-care (01) ==
LOC: LAB 16:09
PROVIDERS: ATTEND Surgery
DX: D64.9 Anemia, unspecified (principal)
CPT/HCPCS: 36415; 85025

== ENCOUNTER 2019-11-16 09:29 | Emergency (ER) | payer MEDICARE ==
--- NOTE | 2019-11-16 10:23 | ED Physician Documentation ---
History of Present Illness - Stated complaint Stated Complaint: BLOOD TRANSFUSION - Chief complaint Chief Complaint: General - History obtained from History obtained from: Patient - History of Present Illness Timing: How many weeks ago (several) - Additonal information Additional information: 69-year-old male with a gastric tumor and anemia has required a transfusion last month and he is requiring another transfusion today. He has had his gastric tumor biopsied the biopsy was inconclusive and he is scheduled for another biopsy in about 2 weeks. He has previously been on Xarelto for DVT and he has recently discontinued this. 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 He has not had follow-up on his need for anticoagulation. The patient indicates that he is not particularly symptomatic with his anemia other than general fatigue occasional exertional dyspnea and he denies chest pain or syncope. He does occasionally get lightheaded. Review of Systems Constitutional: denies: Fever Eyes: denies: Decreased vision Ears: denies: Ear pain Nose: denies: Congestion Throat: denies: Sore throat Cardiac: denies: Chest pain / pressure, Palpitations Respiratory: reports: Dyspnea. denies: Cough, Wheezing GI: denies: Abdominal Pain, Nausea, Vomiting, Constipation, Diarrhea : denies: Dysuria, Frequency PD PAST MEDICAL HISTORY - Past Medical History Cardiovascular: Hypertension, Deep vein thrombosis, Arrhythmia Respiratory: Asthma Neuro: None Endocrine/Autoimmune: None GI: None : Retention HEENT: Chronic hearing loss Psych: Anxiety, Other Musculoskeletal: None Derm: None - Past Surgical History Past Surgical History: Yes General: Other HEENT: Cataracts - Present Medications Home Medications: Ambulatory Orders Medication Instructions Recorded Confirmed Albuterol Sulfate [Proair Hfa 1 puffs PO Q4H PRN 12/25/12 11/15/19 Inhaler] Ciclesonide [Alvesco] 1 puffs INH BID 10/17/19 11/15/19 Atenolol [Tenormin] 25 mg PO DAILY #30 tablet 10/18/19 11/15/19 - Allergies Allergies/Adverse Reactions: Allergies Allergy/AdvReac Type Severity Reaction Status Date / Time No Known Drug Allergies Allergy Verified 11/16/19 09:45 - Social History Does the pt smoke?: Yes Smoking Status: Former smoker Does the pt drink ETOH?: Yes Does the pt have substance abuse?: No - Immunizations Immunizations are current?: Yes - POLST Patient has POLST: No PD ED PE NORMAL - Vitals Vital signs reviewed: Yes (normal ) - General General: Alert and oriented X 3, Well developed/nourished, Other (well appearing but pale) - HEENT HEENT: Atraumatic, PERRL, EOMI - Neck Neck: Supple, no meningeal sign, No bony TTP - Cardiac Cardiac: RRR, No murmur - Respiratory Respiratory: No respiratory distress, Clear bilaterally, Other (bird cage thorax) - Abdomen Abdomen: Normal bowel sounds, Soft, Non tender, Non distended, No organomegaly - Back Back: No CVA TTP, No spinal TTP - Derm Derm: Normal color, Warm and dry, No rash - Extremities Extremities: No deformity, Other (bilat edema) - Neuro Neuro: Alert and oriented X 3, contract administration manager 2-12 intact, No motor deficit, No sensory deficit, Normal speech Eye Opening: Spontaneous Motor: Obeys Commands Verbal: Oriented GCS Score: 15 - Psych Psych: Normal mood, Normal affect Results - Vitals Vitals: Vital Signs - 24 hr 11/16/19 11/16/19 11/16/19 09:43 12:02 12:08 Temperature 37.0 C 36.6 C 36.8 C Heart Rate 69 57 L 56 L Respiratory 15 18 14 Rate Blood Pressure 127/70 117/79 117/79 O2 Saturation 100 11/16/19 11/16/19 11/16/19 12:26 12:50 14:02 Temperature 36.9 C 36.9 C Heart Rate 58 L 76 53 L Respiratory 18 14 12 Rate Blood Pressure 117/76 138/78 H 125/81 H O2 Saturation 100 100 11/16/19 11/16/19 11/16/19 14:30 14:41 14:51 Temperature 36.7 C 36.8 C 36.5 C Heart Rate 47 L 45 L 55 L Respiratory 14 16 15 Rate Blood Pressure 130/89 H 125/90 H 121/82 H O2 Saturation 11/16/19 16:47 Temperature 36.5 C Heart Rate 50 L Respiratory 12 Rate Blood Pressure 131/92 H O2 Saturation 97 Oxygen O2 Source Room air - Labs Labs: Laboratory Tests 11/16/19 11/16/19 11/16/19 09:55 09:55 10:35 WBC 6.5 RBC 3.14 L Hgb 7.4 L Hct 25.7 L MCV 81.8 MCH 23.6 L MCHC 28.8 L RDW 17.9 H Plt Count 260 MPV 10.2 Neut # (Auto) 4.7 Lymph # (Auto) 0.7 L Carver # (Auto) 0.8 Eos # (Auto) 0.3 Baso # (Auto) 0.0 Absolute Nucleated RBC 0.00 Nucleated RBC % 0.0 Sodium 137 Potassium 4.3 Chloride 101 Carbon Dioxide 26 Anion Gap 10.0 BUN 30 H Creatinine 1.0 Estimated GFR (MDRD) 74 L Glucose 70 Calcium 8.9 Total Bilirubin 0.4 AST 25 ALT 18 Alkaline Phosphatase 63 Total Protein 6.6 L Albumin 3.8 Globulin 2.8 Albumin/Globulin Ratio 1.4 Lipase 26 Blood Type A POSITIVE Antibody Screen NEGATIVE Crossmatch IS Only See Detail PD MEDICAL DECISION MAKING - ED course Complexity details: reviewed old records, reviewed results, re-evaluated patient, considered differential, d/w patient ED course: 69-year-old male with a 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 He does have some exertional dyspnea he does have some fatigue and he feels improved after receiving 2 units of packed red blood cells. Departure - Departure Disposition: 01 Home, Self Care Clinical Impression: Anemia Qualifiers: Anemia type: unspecified type Qualified Code(s): D64.9 - Anemia, unspecified Condition: Stable Instructions: ED Anemia Type Not Specified Follow-Up: Preston Hua PA [Primary Care Provider] - Discharge Date/Time: 11/16/19 16:45
[2019-11-16 10:42] LABS: ALBUMIN 3.8 g/dL (3.2-5.5); ALBUMIN/GLOBULIN RATIO 1.4 (1.0-2.2); BASOPHILS % (AUTO) 0.5 %; BILIRUBIN,TOTAL 0.4 mg/dL (0.2-1.0); CALCIUM 8.9 mg/dL (8.5-10.3); EOSINOPHILS # (AUTO) 0.3 10^3/uL (0.0-0.7); EOSINOPHILS % (AUTO) 3.8 %; HGB - HEMOGLOBIN 7.4 g/dL (14.0-18.0); LYMPHOCYTES # (AUTO) 0.7 10^3/uL (1.5-3.5); LYMPHOCYTES % (AUTO) 10.6 %; MEAN CORPUSCULAR HEMOGLOBIN 23.6 pg (27.0-31.0); MEAN CORPUSCULAR HGB CONC 28.8 g/dL (32.0-36.0); MEAN CORPUSCULAR VOLUME 81.8 fL (80.0-94.0); MEAN PLATELET VOLUME 10.2 fL (7.4-11.4); MONOCYTES # (AUTO) 0.8 10^3/uL (0.0-1.0); MONOCYTES % (AUTO) 12.4 %; NEUTROPHILS # (AUTO) 4.7 10^3/uL (1.5-6.6); NEUTROPHILS % (AUTO) 72.4 %; PLT - PLATELET COUNT 260 10^3/uL (130-450); RED BLOOD COUNT 3.14 10^6/uL (4.70-6.10); RED CELL DISTRIBUTION WIDTH 17.9 % (12.0-15.0); TOTAL PROTEIN 6.6 g/dL (6.7-8.2); WHITE BLOOD COUNT 6.5 x10^3/uL (4.8-10.8)
[2019-11-16 16:48] VITALS: BP 131/92
== END 2019-11-16 16:45 | disposition home or self-care (01) ==
LOC: ED 09:29
DX: D64.9 Anemia, unspecified (principal); D49.0 Neoplasm of unspecified behavior of digestive system; I10 Essential (primary) hypertension; Z86.718 Personal history of other venous thrombosis and embolism; Z87.891 Personal history of nicotine dependence
CPT/HCPCS: 36415; 36430; 80053; 83690; 85025; 86850; 86900; 86901; 86920; 99284; 99285; P9016

== ENCOUNTER 2019-11-29 13:26 | Day surgery (SDC) | payer MEDICARE ==
[2019-11-29] MEDS ORDERED: MIDAZOLAM 2 MG/2 ML VIAL IVP ONE (13:27)
[2019-11-29] MEDS ORDERED: fentaNYL 250 MCG/5 ML VIAL IVP ONE (13:27)
[2019-11-29] MEDS ORDERED: LACTATED RINGERS 1,000 ML IV ONE ×2 (13:36→16:01)
[2019-11-29] MEDS ORDERED: LIDO GARGLE 30 ML BOTTLE ONE (15:39)
[2019-11-29] MEDS ORDERED: LIDO GARGLE 30 ML BOTTLE PO ONE (15:42)
[2019-11-29 16:54] VITALS: BP 106/74
== END 2019-11-29 13:27 | disposition home or self-care (01) ==
LOC: SDS 13:26
PROVIDERS: ATTEND Surgery
PROC: 0DB68ZX Excision of Stomach, Via Natural or Artificial Opening Endoscopic, Diagnostic (ICD-10-PCS; principal; 2019-11-29 14:30)
DX: C49.A2 Gastrointestinal stromal tumor of stomach (principal); D64.9 Anemia, unspecified; Z87.891 Personal history of nicotine dependence; Z86.718 Personal history of other venous thrombosis and embolism
CPT/HCPCS: 43239; 87081; A9270; J3010; J7120

== ENCOUNTER 2019-12-11 12:24 | Outpatient (CLI) | payer MEDICARE ==
[2019-12-11] MEDS ORDERED: IOVERSOL 320 100 ML VIAL IVP ONE (12:38)
[2019-12-11] MEDS ORDERED: IOVERSOL 320 50 ML VIAL ONE (12:38)
--- NOTE | 2019-12-11 15:11 | CT Report ---
PROCEDURE: Abdomen/Pelvis W INDICATIONS: GIST CONTRAST: IV CONTRAST: Optiray 320 ml: 100 PO CONTRAST: Optiray 320 ml50 TECHNIQUE: After the administration of contrast, 5 mm thick sections acquired from the diaphragms to the sym physis. 5 mm thick coronal and sagittal reformats were acquired. For radiation dose reduction, the following was used: automated exposure control, adjustment of mA and/or kV according to patient size . COMPARISON: Prior CTs 10/17/2019 and 10/18/19 through the abdomen and pelvis reviewed.. FINDINGS: Image quality: Excellent. ABDOMEN: Lung bases: Lung bases are clear. Heart size is mildly enlarged. Solid organs: Liver and spleen are normal in size and enhancement. Gallbladder Biliary system is non dilated. Pancreas enhances normally. No adrenal nodules. Kidneys demonstrate normal size an d enhancement, without hydronephrosis. Peritoneum and bowel: Bowel loops demonstrate normal wall thickness and caliber. No free fluid or a ir. Moderate colonic obstipation bilaterally, involving the abdomen and pelvis. Nodes and vessels: No retroperitoneal or mesenteric adenopathy by size criteria. Aorta and inferior vena cava are normal in size. Miscellaneous: No ventral hernias. PELVIS: Genitourinary: Bladder wall thickness is abnormal, diffusely, likely reflecting cystitis. The prostat e appears somewhat enlarged and lobulated at the median lobe superiorly. Miscellaneous: No inguinal hernias or adenopathy. Generalized colonic obstipation. Bones: No suspicious bony lesions. No vertebral body compression fractures. IMPRESSION: Generalized colonic obstipation on the right than the left, within the abdomen and pelvi s. No definite acute disease found. Note is made of generalized bladder wall thickening and enlargeme nt of the prostate gland. Chronic cystitis would be suspected. A discrete malignant appearing mass is not found. No metastatic disease/adenopathy is seen related to reported GI stromal tumor. Note: A prior CT 10/18/2019 had identified the GI stromal tumor within the gastric lumen utilizing ora l contrast. The current study has no oral contrast within the gastric lumen and therefore accurate as sessment for presence or absence of mass within the stomach at this time is very limited. Reviewed by: Irwin Mobley MD on 12/11/2019 3:10 PM PDT Approved by: Irwin Mobley MD on 12/11/2019 3:10 PM PDT Station ID: [id number]
--- NOTE | 2019-12-11 15:15 | CT Report ---
PROCEDURE: CHEST W INDICATIONS: GIST CONTRAST: IV CONTRAST: Optiray 320 ml: 100 PO CONTRAST: Optiray 320 ml50 TECHNIQUE: After the administration of intravenous contrast, 5 mm thick sections acquired from the pulmonary api pavel to the posterior costophrenic angles. 7 mm thick coronal MIP reformats were acquired. For radia tion dose reduction, the following was used: automated exposure control, adjustment of mA and/or kV according to patient size. COMPARISON: Prior abdominal CT scanning that includes a portion of the lung bases same day and 10/09. . FINDINGS: Image quality: Excellent. Lungs and pleura: No acute air space opacities. No pleural effusions or pneumothorax. Central and peripheral airways are patent and normal in caliber. Mediastinum: Heart size is mildly enlarged, chronically, without evidence of CHF. No pericardial ef fusion. No mediastinal or hilar adenopathy by size criteria. Thoracic aorta and central pulmonary a rteries are normal in size. Esophagus is normal in caliber. No hiatal hernia. Bones and chest wall: No suspicious bony lesions. No vertebral body compression fractures. No axil nelia or supraclavicular adenopathy by size criteria. Thyroid gland appears normal. Abdomen: Visualized upper abdominal solid organs appear normal. Upper abdominal bowel loops are nor mal in caliber. IMPRESSION: Chronic mild cardiomegaly. No sign of discrete mass lesion within the stomach in the area of prior CT concern 10/18/[address] scanning. As noted during abdominal CT report the current examination does not include any visible oral contrast within the gastric lumen. Therefore, given the absence of distention of the stomach and a positive oral contrast volume within the gastric lumen accurate asses sment for presence or absence of residual GI stromal tumor within the gastric lumen is very limited. Reviewed by: Irwin Mobley MD on 12/11/2019 3:13 PM PDT Approved by: Irwin Mobley MD on 12/11/2019 3:13 PM PDT Station ID: [id number]
== END 2019-12-11 12:25 | disposition home or self-care (01) ==
LOC: DI 12:24
PROVIDERS: ATTEND Physician Assistant
DX: K59.00 Constipation, unspecified (principal); N40.0 Benign prostatic hyperplasia without lower urinary tract symptoms; I51.7 Cardiomegaly
CPT/HCPCS: 71260; 74177; Q9967

== ENCOUNTER 2021-07-02 14:09 | Outpatient (CLI) | payer MEDICARE ==
[2021-07-02 14:25] LABS: BASOPHILS % (AUTO) 0.6 %; EOSINOPHILS # (AUTO) 0.3 10^3/uL (0.0-0.7); EOSINOPHILS % (AUTO) 4.9 %; HCT - HEMATOCRIT 38.2 % (42.0-52.0); HGB - HEMOGLOBIN 12.9 g/dL (14.0-18.0); LYMPHOCYTES # (AUTO) 0.9 10^3/uL (1.5-3.5); LYMPHOCYTES % (AUTO) 17.8 %; MEAN CORPUSCULAR HEMOGLOBIN 32.8 pg (27.0-31.0); MEAN CORPUSCULAR HGB CONC 33.8 g/dL (32.0-36.0); MEAN CORPUSCULAR VOLUME 97.2 fL (80.0-94.0); MEAN PLATELET VOLUME 11.2 fL (7.4-11.4); MONOCYTES # (AUTO) 0.7 10^3/uL (0.0-1.0); MONOCYTES % (AUTO) 13.4 %; NEUTROPHILS # (AUTO) 3.3 10^3/uL (1.5-6.6); NEUTROPHILS % (AUTO) 62.9 %; PLT - PLATELET COUNT 132 10^3/uL (130-450); RED BLOOD COUNT 3.93 10^6/uL (4.70-6.10); RED CELL DISTRIBUTION WIDTH 12.9 % (12.0-15.0); WHITE BLOOD COUNT 5.3 x10^3/uL (4.8-10.8)
== END 2021-07-02 14:10 | disposition home or self-care (01) ==
LOC: LAB 14:09
PROVIDERS: ATTEND Physician Assistant
DX: D50.0 Iron deficiency anemia secondary to blood loss (chronic) (principal)
CPT/HCPCS: 36415; 82565; 85025

== ENCOUNTER 2021-09-16 12:44 | Emergency (ER) | payer MEDICARE ==
[2021-09-16 13:26] LABS: BASOPHILS % (AUTO) 0.3 %; HCT - HEMATOCRIT 39.2 % (42.0-52.0); HGB - HEMOGLOBIN 13.8 g/dL (14.0-18.0); LYMPHOCYTES # (AUTO) 0.5 10^3/uL (1.5-3.5); MEAN CORPUSCULAR HEMOGLOBIN 32.9 pg (27.0-31.0); MEAN CORPUSCULAR HGB CONC 35.2 g/dL (32.0-36.0); MEAN CORPUSCULAR VOLUME 93.3 fL (80.0-94.0); MONOCYTES # (AUTO) 0.8 10^3/uL (0.0-1.0); MONOCYTES % (AUTO) 23.7 %; NEUTROPHILS # (AUTO) 2.2 10^3/uL (1.5-6.6); NEUTROPHILS % (AUTO) 62.4 %; PLT - PLATELET COUNT 102 10^3/uL (130-450); WHITE BLOOD COUNT 3.5 x10^3/uL (4.8-10.8)
[2021-09-16 13:41] LABS: ALBUMIN 4.5 g/dL (3.2-5.5); ALBUMIN/GLOBULIN RATIO 1.6 (1.0-2.2); BILIRUBIN,TOTAL 0.9 mg/dL (0.2-1.0); CALCIUM 8.8 mg/dL (8.5-10.3); CREATININE 1.1 mg/dL (0.6-1.2); POTASSIUM 4.2 mmol/L (3.5-5.0); TOTAL PROTEIN 7.4 g/dL (6.7-8.2)
[2021-09-16] MEDS ORDERED: SODIUM CHLORIDE 0.9% 1,000 ML IV STA (15:37)
[2021-09-16] MEDS ORDERED: DEXAMETHASONE 10 MG/ML VIAL IV STA (16:38)
[2021-09-16] MEDS ORDERED: IPRATROPIUM/ALBUTEROL 3 ML NEB INH STA (16:38)
--- NOTE | 2021-09-16 16:45 | ED Physician Documentation ---
History of Present Illness - Stated complaint Stated Complaint: WEAKNESS - Chief complaint Chief Complaint: General - History obtained from History obtained from: Patient, Family - Additonal information Additional information: The patient comes to the emergency department 3 days of fatigue and generalized weakness. He was also had a dry cough and a little nasal congestion. No fevers or chills. No known sick contacts. His has a similar illness. Patient has a history of underlying asthma and states this may have been acting up a little bit too. No chest pain or shortness of breath. No other complaints at this time. Review of Systems Ten Systems: 10 systems reviewed and negative Constitutional: reports: Fatigue Eyes: reports: Reviewed and negative Ears: reports: Reviewed and negative Nose: reports: Congestion Throat: reports: Reviewed and negative Cardiac: reports: Reviewed and negative Respiratory: reports: Cough GI: reports: Reviewed and negative : reports: Reviewed and negative Skin: reports: Reviewed and negative Musculoskeletal: reports: Reviewed and negative Neurologic: reports: Reviewed and negative Psychiatric: reports: Reviewed and negative Endocrine: reports: Reviewed and negative Immunocompromised: reports: Reviewed and negative PD PAST MEDICAL HISTORY - Past Medical History Cardiovascular: Hypertension, Deep vein thrombosis, Arrhythmia Respiratory: Asthma Neuro: None Endocrine/Autoimmune: None GI: None : Retention HEENT: Chronic hearing loss Psych: Anxiety, Other Musculoskeletal: None Derm: None - Past Surgical History Past Surgical History: Yes General: Other HEENT: Cataracts - Present Medications Home Medications: Ambulatory Orders Medication Instructions Recorded Confirmed Albuterol Sulfate [Proair Hfa 1 puffs PO Q4H PRN 12/25/12 12/13/19 Inhaler] Ciclesonide [Alvesco] 1 puffs INH BID 10/17/19 12/13/19 Atenolol [Tenormin] 25 mg PO DAILY #30 tablet 10/18/19 12/13/19 Albuterol Sulf [Ventolin Hfa 1 - 2 puffs INH Q4HR PRN #1 gm 09/16/21 Inhaler] Nirmatrelvir/Ritonavir [Paxlovid] 1 kit PO UD #1 kit 09/16/21 predniSONE [Deltasone] 60 mg PO DAILY 5 Days #15 tablet 09/16/21 - Allergies Allergies/Adverse Reactions: Allergies Allergy/AdvReac Type Severity Reaction Status Date / Time No Known Drug Allergies Allergy Verified 07/28/22 12:59 - Social History Does the pt smoke?: Yes Smoking Status: Former smoker Does the pt drink ETOH?: Yes Does the pt have substance abuse?: No - Immunizations Immunizations are current?: Yes - POLST Patient has POLST: No PD ED PE NORMAL - Vitals Vital signs reviewed: Yes - General General: Alert and oriented X 3, No acute distress, Well developed/nourished - HEENT HEENT: Atraumatic, PERRL, EOMI, Moist mucous membranes - Neck Neck: Supple, no meningeal sign - Cardiac Cardiac: RRR, No murmur, Strong equal pulses - Respiratory Respiratory: No respiratory distress, Other (Good air movement bilaterally, but with faint wheezes throughout. Patient is also noted to have a dry cough when talking and appears to become mildly dyspneic.) - Abdomen Abdomen: Soft, Non tender, Non distended - Derm Derm: Normal color, Warm and dry, No rash - Extremities Extremities: No deformity, No edema, No calf tenderness / cord - Neuro Neuro: Alert and oriented X 3 - Psych Psych: Normal mood, Normal affect Results - Vitals Vitals: Vital Signs - 24 hr 09/16/21 09/16/21 09/16/21 12:54 16:47 16:55 Temperature 36.7 C 36.4 C L Heart Rate 97 90 90 Respiratory 14 14 18 Rate Blood Pressure 104/57 L 115/80 O2 Saturation 94 99 Oxygen O2 Source Room air - Labs Labs: Laboratory Tests 09/16/21 09/16/21 09/16/21 13:05 13:05 16:10 WBC 3.5 L RBC 4.20 L Hgb 13.8 L Hct 39.2 L MCV 93.3 MCH 32.9 H MCHC 35.2 RDW 13.0 Plt Count 102 L MPV 11.0 Neut # (Auto) 2.2 Lymph # (Auto) 0.5 L [place] # (Auto) 0.8 Eos # (Auto) 0.0 Baso # (Auto) 0.0 Absolute Nucleated RBC 0.00 Nucleated RBC % 0.0 Sodium 126 L Potassium 4.2 Chloride 89 L Carbon Dioxide 26 Anion Gap 11.0 BUN 23 H Creatinine 1.1 Estimated GFR (MDRD) 66 L Glucose 100 Calcium 8.8 Total Bilirubin 0.9 AST 48 H ALT 26 Alkaline Phosphatase 54 Total Protein 7.4 Albumin 4.5 Globulin 2.9 Albumin/Globulin Ratio 1.6 Lipase 30 Urine Color Urine Clarity Urine pH Ur Specific [place] Urine Protein Urine Glucose (UA) Urine Ketones Urine Occult Blood Urine Nitrite Urine Bilirubin Urine Urobilinogen Ur Leukocyte Esterase Urine RBC Urine WBC Ur Epithelial Cells Ur Squamous Epith Cells Amorphous Sediment Urine Bacteria Ur Microscopic Review Urine Culture Comments Nasal Adenovirus (PCR) NOT DETECTED Nasal B. parapertussis DNA (PCR) NOT DETECTED Nasal Coronavir 229E PCR NOT DETECTED Nasal Coronavir HKU1 PCR NOT DETECTED Nasal Coronavir NL63 PCR NOT DETECTED Nasal Coronavir OC43 PCR NOT DETECTED Nasal Enterovir/Rhinovir PCR NOT DETECTED Nasal Influenza B PCR NOT DETECTED Nasal Influenza A PCR NOT DETECTED Nasal Parainfluen 1 PCR NOT DETECTED Nasal Parainfluen 2 PCR NOT DETECTED Nasal Parainfluen 3 PCR NOT DETECTED Nasal Parainfluen 4 PCR NOT DETECTED Nasal RSV (PCR) NOT DETECTED Nasal B.pertussis DNA PCR NOT DETECTED Nasal C.pneumoniae (PCR) NOT DETECTED [place] Human Metapneumo PCR NOT DETECTED Nasal M.pneumoniae (PCR) NOT DETECTED Nasal SARS-CoV-2 (PCR) DETECTED A 09/16/21 17:30 WBC RBC Hgb Hct MCV MCH MCHC RDW Plt Count MPV Neut # (Auto) Lymph # (Auto) [place] # (Auto) Eos # (Auto) Baso # (Auto) Absolute Nucleated RBC Nucleated RBC % Sodium Potassium Chloride Carbon Dioxide Anion Gap BUN Creatinine Estimated GFR (MDRD) Glucose Calcium Total Bilirubin AST ALT Alkaline Phosphatase Total Protein Albumin Globulin Albumin/Globulin Ratio Lipase Urine Color YELLOW Urine Clarity CLEAR Urine pH 6.0 Ur Specific [place] 1.015 Urine Protein NEGATIVE Urine Glucose (UA) NEGATIVE Urine Ketones NEGATIVE Urine Occult Blood LARGE H Urine Nitrite POSITIVE H Urine Bilirubin NEGATIVE Urine Urobilinogen 0.2 (NORMAL) Ur Leukocyte Esterase LARGE H Urine RBC 11-25 H Urine WBC >25 H Ur Epithelial Cells FEW Transitional Ur Squamous Epith Cells RARE Squamous Amorphous Sediment Rare Urine Bacteria Many H Ur Microscopic Review INDICATED Urine Culture Comments INDICATED Nasal Adenovirus (PCR) Nasal B. parapertussis DNA (PCR) Nasal Coronavir 229E PCR Nasal Coronavir HKU1 PCR Nasal Coronavir NL63 PCR Nasal Coronavir OC43 PCR Nasal Enterovir/Rhinovir PCR Nasal Influenza B PCR Nasal Influenza A PCR Nasal Parainfluen 1 PCR Nasal Parainfluen 2 PCR Nasal Parainfluen 3 PCR Nasal Parainfluen 4 PCR Nasal RSV (PCR) Nasal B.pertussis DNA PCR Nasal C.pneumoniae (PCR) [place] Human Metapneumo PCR Nasal M.pneumoniae (PCR) Nasal SARS-CoV-2 (PCR) PD MEDICAL DECISION MAKING - ED course Complexity details: reviewed results, re-evaluated patient, considered differential, d/w patient ED course: The patient was worked up with labs, respiratory PCR panel and chest x-ray. He was given IV fluids, a DuoNeb, and a dose of Decadron. He was found to be eeling a little better after this. His covid test was positive. We have discussed symptomatic management at home and the usual indications for return. Pt has been started on Paxlovid. Departure - Departure Disposition: Home, Self Care Clinical Impression: COVID-19 Condition: Stable Instructions: ED Viral Syndrome Prescriptions: Albuterol Sulf [Ventolin Hfa Inhaler] 1 - 2 puffs INH Q4HR PRN #1 gm PRN Reason: Shortness Of Air/Wheezing predniSONE [Deltasone] 60 mg PO DAILY 5 Days #15 tablet Nirmatrelvir/Ritonavir [Paxlovid] 1 kit PO UD #1 kit Comments: Your x-ray and labs look good. Your viral panel came back positive for COVID, which would explain your fatigue and mild upper respiratory symptoms. As with all viruses, your body will need to fight this off on its own. We will start you on Paxlovid, as well as a short course of steroids for your wheezing and asthma. You may use the albuterol inhaler every 4 hours during waking hours if needed. Your prescriptions have been electronically transmitted to the [facility] in [place], which is your preferred pharmacy of record. Discharge Date/Time: 09/16/21 17:48
[2021-09-16 16:48] VITALS: BP 115/80
[2021-09-16 17:06] LABS: CORONAVIRUS 229E-RESP PCR NOT DETECTED; CORONAVIRUS HKU1-RESP PCR NOT DETECTED; CORONAVIRUS NL63-RESP PCR NOT DETECTED; CORONAVIRUS OC43-RESP PCR NOT DETECTED
[2021-09-16 17:11] LABS: B. PARAPERTUSSIS- RESP PCR PAN NOT DETECTED; B. PERTUSSIS- RESP PCR PANEL NOT DETECTED; C. PNEUMONIAE- RESP PCR PANEL NOT DETECTED; HUMAN METAPNEUMOVIRUS NOT DETECTED; INFLUENZA A- RESP PCR PANEL NOT DETECTED; INFLUENZA B - RESP PCR PANEL NOT DETECTED; M. PNEUMONIAE- RESP PCR PANEL NOT DETECTED; PARAINFLUENZA VIRUS 1 NOT DETECTED; PARAINFLUENZA VIRUS 2 NOT DETECTED; PARAINFLUENZA VIRUS 3 NOT DETECTED; PARAINFLUENZA VIRUS 4 NOT DETECTED; RHINOVIRUS/ENTEROVIRUS NOT DETECTED; RSV- RESP PCR PANEL NOT DETECTED; SARS-CoV-2 -RESP PCR PANEL DETECTED
[2021-09-16 17:39] LABS: BILIRUBIN,URINE NEGATIVE (NEGATIVE); GLUCOSE, URINE (UA) NEGATIVE (NEGATIVE); KETONES,URINE (UA) NEGATIVE (NEGATIVE); LEUKOCYTE ESTERASE, URINE LARGE (NEGATIVE); NITRITE,URINE POSITIVE (NEGATIVE); OCCULT BLOOD,URINE LARGE (NEGATIVE); PROTEIN,URINE NEGATIVE (NEGATIVE); UROBILINOGEN,URINE 0.2 (NORMAL) E.U./dL (NORMAL)
[2021-09-16 17:43] LABS: CLARITY,URINE CLEAR (CLEAR)
[2021-09-16 17:49] LABS: AMORPHOUS SEDIMENT,UR Rare /LPF; BACTERIA,URINE Many /HPF (None Seen); EPITHELIAL CELLS,UR FEW Transitional /HPF (<= Few); SQUAMOUS EPITHELIAL CELL,UR RARE Squamous (<= Few); WBC,URINE >25 /HPF (0-3)
--- NOTE | 2021-09-16 18:06 | XRAY Report ---
PROCEDURE: Chest 1 View X-Ray INDICATIONS: chest pain COMMENTS: Chest pain/ Pt states weakness PRIORS: none TECHNIQUE: One view of the chest was acquired. COMPARISON: 07/08/2013 FINDINGS: Surgical changes and devices: None. Lungs and pleura: No pleural effusions or pneumothorax. Lungs are clear. Mediastinum: Mediastinal contours appear normal. Heart size is normal. The aorta is tortuous. Bones and chest wall: No suspicious bony lesions. Overlying soft tissues appear unremarkable. IMPRESSION: No acute cardiopulmonary abnormality. Reviewed by: Peter Diop on 09/16/2021 6:05 PM PDT Approved by: Peter Diop on 09/16/2021 6:05 PM PDT Station ID: [id number]
== END 2021-09-16 17:48 | disposition home or self-care (01) ==
LOC: ED 12:44
DX: U07.1 COVID-19 (principal); I10 Essential (primary) hypertension; Z87.891 Personal history of nicotine dependence
CPT/HCPCS: 36415; 80053; 81001; 81003; 83690; 85025; 87086; 87181; 87633; 94640; 99283; 99284

== ENCOUNTER 2021-11-26 03:50 | Outpatient (CLI) | payer MEDICARE | END 2021-11-26 03:51 | disposition EMS.NT | LOC: EMS 03:50 | DX: R10.84 Generalized abdominal pain (principal); K59.00 Constipation, unspecified ==

== ENCOUNTER 2021-11-26 04:51 | Emergency (ER) | payer MEDICARE ==
--- NOTE | 2021-11-26 05:14 | ED Physician Documentation ---
PD HPI ABD PAIN - Stated complaint Stated Complaint: ABD PX - Chief complaint Chief Complaint: Abd Pain - History obtained from History obtained from: Patient, Family (spouse (in ED at bedside)) - History of Present Illness Timing - onset: How many days ago (3) Timing - details: Abrupt onset, Now resolved Quality: Pain Location: Other (predominantly across lower abdomen) Improved by: BM Worsened by: Other (no exacerbating factors) Associated symptoms: No: Fever, Nausea, Vomiting, Diarrhea, Constipation, Melena, Hematochezia Similar symptoms before: Has not had sx before Recently seen: Not recently seen - Additional information Additional information: chief complaint is abdominal pain waking him from sleep approximately 3 AM, severe and generalized but worse across lower abdomen, resolved after large BM. He says he had the same symptoms the previous two nights with same onset time and resolution with BM until recurrence around 3 AM. He had not had theses symptoms before 3 days ago. He also says he has dyspnea which he feels is an asthma exacerbation, not improving with albuterol MDI. This has been steadily worsening over past several days. He is markedly dyspneic during HPI Review of Systems Constitutional: reports: Reviewed and negative Cardiac: denies: Chest pain / pressure, Palpitations, Pedal edema, Calf pain Respiratory: reports: Dyspnea, Cough, Wheezing. denies: Hemoptysis GI: reports: Abdominal Pain (resolved MANAGER TALENT ACQUISITION after BM). denies: Abdominal Swelling, Nausea, Vomiting, Diarrhea, Hematemesis, Bloody / black stool PD PAST MEDICAL HISTORY - Past Medical History Cardiovascular: Hypertension, Deep vein thrombosis, Arrhythmia Respiratory: Asthma Neuro: None Endocrine/Autoimmune: None GI: None : Retention HEENT: Chronic hearing loss Psych: Anxiety, Other Musculoskeletal: None Derm: None Other Past Medical History: GIST tumor - Past Surgical History Past Surgical History: Yes General: Other HEENT: Cataracts - Present Medications Home Medications: Ambulatory Orders Medication Instructions Recorded Confirmed Ciclesonide [Alvesco] 1 puffs INH BID 10/17/19 11/26/21 Atenolol [Tenormin] 25 mg PO DAILY #30 tablet 10/18/19 11/26/21 Albuterol Sulf [Ventolin Hfa 1 - 2 puffs INH Q4HR PRN #1 gm 09/16/21 11/26/21 Inhaler] Lactobacillus Combination No.4 1 cap PO DAILY 11/26/21 11/26/21 [Probiotic] Multivitamin with Minerals 1 tab PO DAILY 11/26/21 11/26/21 [Multivitamins with Minerals] Rivaroxaban [Xarelto] 10 mg PO DAILY 11/26/21 11/26/21 predniSONE [Deltasone] 40 mg PO DAILY 4 Days #8 tablet 11/26/21 - Allergies Allergies/Adverse Reactions: Allergies Allergy/AdvReac Type Severity Reaction Status Date / Time No Known Drug Allergies Allergy Verified 11/26/21 05:09 - Social History Does the pt smoke?: Yes Smoking Status: Former smoker Does the pt drink ETOH?: Yes Does the pt have substance abuse?: No - Immunizations Immunizations are current?: Yes - POLST Patient has POLST: No PD ED PE NORMAL - Vitals Vital signs reviewed: Yes - General General: Alert and oriented X 3, Well developed/nourished, Other (respiratory distress, speaking in 1-2 word sentences, grossly audible wheezing) - HEENT HEENT: Moist mucous membranes - Neck Neck: Supple, no meningeal sign - Cardiac Cardiac: RRR - Abdomen Abdomen: Soft, Non tender, Non distended PD ED PE EXPANDED - Respiratory Respiratory: Distress, Wheezing (difuse inspiratory and expiratory wheezing ), Decreased breath sounds - Extremities Extremities: Pedal edema bilateral (L>R) Results - Vitals Vitals: Vital Signs - 24 hr 11/26/21 11/26/21 11/26/21 05:00 05:20 05:30 Temperature 36.9 C Heart Rate 73 65 62 Respiratory 18 21 22 Rate Blood Pressure 130/80 148/96 H O2 Saturation 96 98 11/26/21 11/26/21 11/26/21 05:42 05:49 06:09 Temperature 36.9 C Heart Rate 63 70 73 Respiratory 20 22 19 Rate Blood Pressure 120/97 H 122/92 H O2 Saturation 98 95 11/26/21 11/26/21 11/26/21 06:47 07:30 08:30 Temperature 36.8 C Heart Rate 74 69 71 Respiratory 20 17 17 Rate Blood Pressure 120/86 H 119/80 O2 Saturation 95 94 96 Oxygen O2 Source Room air - EKG (time done) No standard instances Rate: Rate (enter#) (70) Rhythm: NSR [place]: LAD, Anterior hemiblock Intervals: Normal [place] QRS: Normal Ischemia: Normal ST segments - Labs Labs: Laboratory Tests 11/26/21 11/26/21 11/26/21 05:15 05:15 05:15 WBC 7.4 RBC 3.72 L Hgb 12.2 L Hct 35.9 L MCV 96.5 H MCH 32.8 H MCHC 34.0 RDW 13.6 Plt Count 165 MPV 11.0 Neut # (Auto) 5.9 Lymph # (Auto) 0.7 L [place] # (Auto) 0.6 Eos # (Auto) 0.1 Baso # (Auto) 0.0 Absolute Nucleated RBC 0.00 Nucleated RBC % 0.0 Sodium 130 L Potassium 4.0 Chloride 97 L Carbon Dioxide 25 Anion Gap 8.0 BUN 32 H Creatinine 0.9 Estimated GFR (MDRD) 83 L Glucose 116 H Calcium 8.7 Total Bilirubin 1.1 H AST 27 ALT 21 Alkaline Phosphatase 49 B-Natriuretic Peptide 32 Total Protein 6.7 Albumin 4.1 Globulin 2.6 Albumin/Globulin Ratio 1.6 Lipase 38 Urine Color Urine Clarity Urine pH Ur Specific [place] Urine Protein Urine Glucose (UA) Urine Ketones Urine Occult Blood Urine Nitrite Urine Bilirubin Urine Urobilinogen Ur Leukocyte Esterase Urine RBC Urine WBC Ur Squamous Epith Cells Urine Bacteria Ur Microscopic Review Urine Culture Comments 11/26/21 06:04 WBC RBC Hgb Hct MCV MCH MCHC RDW Plt Count MPV Neut # (Auto) Lymph # (Auto) [place] # (Auto) Eos # (Auto) Baso # (Auto) Absolute Nucleated RBC Nucleated RBC % Sodium Potassium Chloride Carbon Dioxide Anion Gap BUN Creatinine Estimated GFR (MDRD) Glucose Calcium Total Bilirubin AST ALT Alkaline Phosphatase B-Natriuretic Peptide Total Protein Albumin Globulin Albumin/Globulin Ratio Lipase Urine Color YELLOW Urine Clarity HAZY Urine pH 6.0 Ur Specific [place] 1.020 Urine Protein NEGATIVE Urine Glucose (UA) NEGATIVE Urine Ketones NEGATIVE Urine Occult Blood TRACE-INTA Urine Nitrite NEGATIVE Urine Bilirubin NEGATIVE Urine Urobilinogen 0.2 (NORMAL) Ur Leukocyte Esterase SMALL H Urine RBC 0-5 Urine WBC 11-25 H Ur Squamous Epith Cells FEW Squamous Urine Bacteria Few Ur Microscopic Review INDICATED Urine Culture Comments INDICATED - Rads (name of study) chest xray Radiology: Prelim report reviewed, See rad report PD MEDICAL DECISION MAKING - ED course Complexity details: reviewed results, re-evaluated patient, considered differential, d/w patient, d/w family ED course: significant improvement regarding dyspnea after duoneb and albuterol neb as well as 10mg IV decadron. No concerning findings on blood tests, CXR. CT A/P ordered and result pending at end of my shift; care of patient turned over to oncoming ED physician at end of my shift pending CT results, reevaluation, and appropriate disposition Departure - Departure Clinical Impression: Asthma, Abdominal pain Condition: Good Instructions: ED Reactive Airway Disease, ED Abdominal Pain Unkn Cause Male Prescriptions: predniSONE [Deltasone] 40 mg PO DAILY 4 Days #8 tablet
[2021-11-26] MEDS ORDERED: IPRATROPIUM/ALBUTEROL 3 ML NEB INH STA (05:22)
[2021-11-26] MEDS ORDERED: DEXAMETHASONE 10 MG/ML VIAL IVP STA (05:23)
[2021-11-26 05:25] LABS: BASOPHILS % (AUTO) 0.1 %; EOSINOPHILS # (AUTO) 0.1 10^3/uL (0.0-0.7); EOSINOPHILS % (AUTO) 1.9 %; HCT - HEMATOCRIT 35.9 % (42.0-52.0); HGB - HEMOGLOBIN 12.2 g/dL (14.0-18.0); LYMPHOCYTES # (AUTO) 0.7 10^3/uL (1.5-3.5); LYMPHOCYTES % (AUTO) 9.5 %; MEAN CORPUSCULAR HEMOGLOBIN 32.8 pg (27.0-31.0); MEAN CORPUSCULAR VOLUME 96.5 fL (80.0-94.0); MONOCYTES # (AUTO) 0.6 10^3/uL (0.0-1.0); NEUTROPHILS # (AUTO) 5.9 10^3/uL (1.5-6.6); NEUTROPHILS % (AUTO) 80.1 %; PLT - PLATELET COUNT 165 10^3/uL (130-450); RED BLOOD COUNT 3.72 10^6/uL (4.70-6.10); RED CELL DISTRIBUTION WIDTH 13.6 % (12.0-15.0); WHITE BLOOD COUNT 7.4 x10^3/uL (4.8-10.8)
[2021-11-26] MEDS ORDERED: ALBUTEROL NEB 2.5 MG/3 ML INH STA (05:37)
[2021-11-26 05:38] LABS: ALBUMIN 4.1 g/dL (3.2-5.5); ALBUMIN/GLOBULIN RATIO 1.6 (1.0-2.2); BILIRUBIN,TOTAL 1.1 mg/dL (0.2-1.0); CALCIUM 8.7 mg/dL (8.5-10.3); CREATININE 0.9 mg/dL (0.6-1.2); TOTAL PROTEIN 6.7 g/dL (6.7-8.2)
[2021-11-26 06:12] LABS: BILIRUBIN,URINE NEGATIVE (NEGATIVE); GLUCOSE, URINE (UA) NEGATIVE (NEGATIVE); KETONES,URINE (UA) NEGATIVE (NEGATIVE); LEUKOCYTE ESTERASE, URINE SMALL (NEGATIVE); NITRITE,URINE NEGATIVE (NEGATIVE); OCCULT BLOOD,URINE TRACE-INTA (NEGATIVE); PROTEIN,URINE NEGATIVE (NEGATIVE); UROBILINOGEN,URINE 0.2 (NORMAL) E.U./dL (NORMAL)
[2021-11-26 06:17] LABS: CLARITY,URINE HAZY (CLEAR)
[2021-11-26 06:22] LABS: BACTERIA,URINE Few /HPF (None Seen); RBC,URINE 0-5 /HPF (0-5); SQUAMOUS EPITHELIAL CELL,UR FEW Squamous (<= Few)
[2021-11-26] MEDS ORDERED: SODIUM CHLORIDE 0.9% 1,000 ML IV ONE (07:36)
[2021-11-26] MEDS ORDERED: iohexoL-300 100 ML VIAL ONE (07:40)
[2021-11-26] MEDS ORDERED: iohexoL-300 100 ML VIAL IVP ONE (08:10)
--- NOTE | 2021-11-26 08:11 | XRAY Report ---
PROCEDURE: Chest 1 View X-Ray INDICATIONS: dyspnea TECHNIQUE: One view of the chest was acquired. COMPARISON: Chest x-ray, 08/09/2021. CT chest with, 10/11/2019. FINDINGS: Surgical changes and devices: None. Lungs and pleura: Chronic interstitial prominence suggesting mild chronic pulmonary congestion. There is appearance of narrowing of the distal trachea.. No pleural effusions or pneumothorax. Lungs are clear. Mediastinum: Mediastinal contours appear normal. Heart size is normal. Bones and chest wall: No suspicious bony lesions. Overlying soft tissues appear unremarkable. IMPRESSION: 1. Chronic interstitial prominence suggesting chronic CHF or interstitial lung disease. 2. Appearance of narrowing of the distal trachea, most likely caused by artifact. If clinically indic ated, consider chest CT. No significant discrepancy with the preliminary interpretation. Reviewed by: Joan Cowart MD on 11/26/2021 8:09 AM PDT Approved by: Joan Cowart MD on 11/26/2021 8:09 AM PDT Station ID: [id number]
--- NOTE | 2021-11-26 09:05 | CT Report ---
PROCEDURE: Abdomen/Pelvis W INDICATIONS: 3 DAYS SEVERE GENERALIZED ABD PAIN CONTRAST: IV CONTRAST: Optiray 320 ml: 100 PO CONTRAST: *NO PO CONTRAST TECHNIQUE: After the administration of oral and intravenous contrast, 5 mm thick sections acquired from the diap hragms to the symphysis. 5 mm thick coronal and sagittal reformats were acquired. For radiation dos e reduction, the following was used: automated exposure control, adjustment of mA and/or kV accordin g to patient size. COMPARISON: CT abdomen and pelvis with, 12/19/2019 and 10/10/2019. FINDINGS: Image quality: Excellent. ABDOMEN: Lung bases: There are respiratory motion artifacts. Lung bases are clear. Heart size is prominent. Trace had a hernia. Solid organs: Liver and spleen are normal in size and enhancement. There is a 0.8 cm enhancing nodu le in the anterior segment of the right hepatic lobe. Gallbladder is normal. Biliary system is non dilated. Pancreas enhances normally. No adrenal nodul es. Kidneys demonstrate normal size and enhancement. Multiple hypodense renal cortical nodules are present bilaterally, most likely cysts. No stones or hydronephrosis. Peritoneum and bowel: There are postsurgical changes in the greater curvature of the stomach. No gas tric masses identified on the current exam. Stomach is contracted. Gastric wall may be mildly thicken ed. Bowel loops demonstrate normal wall thickness and caliber. No free fluid or air. Nodes and vessels: No retroperitoneal or mesenteric adenopathy by size criteria. Aorta and inferior vena cava are normal in size. Miscellaneous: No ventral hernias. PELVIS: Genitourinary: Bladder wall appears thickened. Prostate is enlarged. Miscellaneous: No inguinal hernias or adenopathy. Calcifications in the right inguinal ring is pres umably secondary to postsurgical change. Bones: No suspicious bony lesions. Moderate chronic compression fracture of L1. Mild scoliosis and degenerative changes in lumbar spine. IMPRESSION: 1. No acute abnormalities in abdomen or pelvis. 2. Postsurgical changes in stomach. Gastric wall may be mildly thickened but stomach is not fully dis tended. 3. A 0.8 cm indeterminate enhancing nodule in the anterior segment of the right hepatic lobe. Recomme nd nonemergent MRI for follow-up evaluation. 4. Bilateral renal cortical cysts. 5. Bladder wall is thickened which may be secondary to chronic bladder outlet obstruction or cystitis . 6. Enlarged prostate. 7. Moderate chronic compression fracture of L1. Reviewed by: Jona Cowart MD on 11/26/2021 9:03 AM PDT Approved by: Joan Cowart MD on 11/26/2021 9:03 AM PDT Station ID: [id number]
[2021-11-26 10:01] VITALS: BP 124/68
--- NOTE | 2021-11-30 07:10 | ED Physician Documentation ---
ED Addendum - Addendum Addendum: 11/30/21 07:10 Culture review, he had lower abdominal pain and CT showing concern for cystitis. No antibiotics on discharge. I asked the nurse to call him and nitrofurantoin 100 mg p.o. twice daily for 10 days.
== END 2021-11-26 10:19 | disposition home or self-care (01) ==
LOC: ED 04:51
DX: J45.909 Unspecified asthma, uncomplicated (principal); R10.84 Generalized abdominal pain; I10 Essential (primary) hypertension; Z86.718 Personal history of other venous thrombosis and embolism; Z79.01 Long term (current) use of anticoagulants
CPT/HCPCS: 36415; 71045; 74177; 80053; 81001; 83690; 83880; 85025; 87077; 87086; 87181; 93005; 94640; 96374; 99284; Q9967; 81003